=== PATIENT | female | born 1990 | race Caucasian/White ===

== ENCOUNTER → 2017-05-13 20:18 | Observation (INO) ==
--- NOTE | 2017-05-13 19:53 | OB/GYN History & Physical ---
Date of Encounter: 05/13/17 Time of Encounter: 19:50 Assessment and Plan (1) and not yet delivered in second trimester Current visit: Yes Status: Acute (2) 20 weeks gestation of Current visit: Yes Status: Acute (3) Polysubstance dependence including opioid type drug, episodic abuse Current visit: Yes Status: Acute (4) Hepatitis B affecting in second trimester, antepartum Current visit: Yes Status: Acute (5) Hepatitis C Current visit: Yes Status: Acute Qualifiers: Viral hepatitis chronicity: chronic Hepatic coma status: without hepatic coma Qualified Code(s): B18.2 - Chronic viral hepatitis C History of Present Illness HPI: Ms. Espinoza is a 26 year old female 3 para 1102 at approximately 20 weeks. Presented by EMS secondary to cramping. At the patient got here she actually presented because she was having an anxiety attack and wanted help for her drug addiction. Patient admits to using crack cocaine cocaine and heroin on a daily basis along with large amounts of gabapentin. Patient states that she cannot go without this. She has had no care at this point has a history of a section with her first baby and a with her second. She states her second child was delivered prematurely stated the baby only weighed 1-2 pounds at . She states she had premature rupture membranes and was transferred to [facility] from our facility. Patient does state that she has hepatitis C hepatitis B and has had complete liver failure in the past does not know if she has HIV. 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 We did do a transabdominal ultrasound which confirmed a viable intrauterine with measurements at approximately 20 weeks. Patient did finally come down this was having an anxiety attack over the holidays and is requesting help. We advised her to call the office to try and get into [facility] group she originally did not want to do that when explained if she does not get in a group she is looking at losing all of her children she is willing to get in. Did inform her we will notify the office to call her and try and get her in as soon as possible. After she calmed down she was no longer complaining of abdominal pain. Past Med Surg Social Fam HX - Past Medical History Medical history: hepatitis, seizures, other (Hepatitis B, hepatitis C, history of liver failure in the past, scoliosis) Psychiatric history: anxiety, depression - Past Surgical History Surgical History: - Social History Smoking Status: Current every day smoker Smokeless Tobacco Status: No Alcohol use: none Drug use: cocaine, IV Drug Use, prescription drug abuse, other (Crack cocaine) Occupational status: unemployed Current living situation: Home - Independent Activity Level: Independent ambulation Recent Out of Country Travel Within the Last 8 Weeks: No Exposure or Possible Exposure to Illness During Travel: No Obstetrical History - Pregnancies : 3 Para: 2 Term: 1 : 1 Ab's: 1 Livin Medications and Allergies No Known Home Drugs 12/12/15 [History] 3 Allergy/AdvReac Type Severity Reaction Status Date / Time No Known Allergies Allergy Verified 01/07/16 22:06 Review of System OB All systems PM: reviewed and no additional remarkable complaints except as stated Exam - Constitutional Constitutional: mild distress, disheveled - HEENT HEENT: PERRL - Neck Neck exam: full ROM - Lungs Respiratory exam: CTAB - Cardiovascular Cardiovascular exam: RRR - Abdomen Abdomen: Present: gravid - Cervix Dilation: 0 Effacement: 10 - Comments Comments: Bedside ultrasound confirmed a viable intrauterine good movement noted anterior placenta heart tones in the 160s. Biometrics had the at approximately 20 weeks. Results All other labs normal.
[2017-05-13 19:54] VITALS: BP 125/71
[2017-05-13 20:51] LABS: Amphetamine Screen,Urine Positive ng/mL (Cutoff=1000); Barbiturate Screen,Urine Negative ng/mL (Cutoff=200); Benzodiazepines Screen,Urine Positive ng/mL (Cutoff=200); Cannabinoid Screen,Urine Negative ng/mL (Cutoff = 50); Cocaine Screen,Urine Positive ng/mL (Cutoff= 300); Opiate Screen,Urine Positive ng/mL (Cutoff=300); Phencyclidine Screen,Urine Negative ng/mL (Cutoff=25)
== END | disposition home or self-care (01) ==
LOC: 1NENULAB
PROVIDERS: ADMIT Obstetrics & Gynecology; ATTEND Obstetrics & Gynecology

== ENCOUNTER 2017-08-30 06:11 | Inpatient (IN) ==
[2017-08-30] MEDS ORDERED: Oxytocin 20 units/ LR 1000 mL 20 UNIT/1,000 ML BAG IVC ONE (06:17)
[2017-08-30] MEDS ORDERED: *HR* Oxytocin 10 UNIT/ML VIAL IM ONE ×2 (06:19→07:51)
--- NOTE | 2017-08-30 06:52 | OB/GYN Procedure Note ---
Delivery - Delivery Date: 08/30/17 Provider: Shira Parra Intrapartum events: meconium, precipitous labor- <3hr Delivery induction: none Delivery monitor: external FHT, external uterine Anesthesia: none Estimated Blood Loss: 100 - (s) Infant A Infant Delivery Date: 08/30/17 Infant Delivery Time: 06:26 Presentation: vertex Position: KATRIN Route of delivery: Gender: Female Viability: Viable Pounds: 6 Ounces: 11 Weight Gram: 3045 kg at 1 minute: 8 at 5 mins: 9 Shoulder Dystocia: not encountered Placenta: spontaneous Cord: 3 umbilical vessels - Repair Episiotomy: none Laceration Description: None - Complications Delivery complications: meconium Delivery comments: 27 year-old presenting at 35w4d in active labor at complete dilation. She spontaneously ruptured for thick MSF shortly after arrival and then pushed effectively to over intact perineum. Viable female infant weighing 6lbs 11 oz with apgars 8at one minute and 9 at five minutes. After pulsations ceased the cord was clamped and cut and the placenta delivered spontaneous and intact. No lacerations noted on exam. Mother and baby stable in DR following procedure. EBL 100ml. Placenta appears to be intact with accessory lobe. - Disposition Mom disposition: stable in LDR [place] disposition: stable in LDR
--- NOTE | 2017-08-30 07:05 | OB/GYN History & Physical ---
Date of Encounter: 08/30/17 Time of Encounter: 06:59 Assessment and Plan (1) 35 weeks gestation of Current visit: Yes Status: Acute (2) Active labor Current visit: Yes Status: Acute Pt proceeded with precipitous vaginal delivery after . (3) Hepatitis B affecting in second trimester, antepartum Current visit: No Status: Acute No lab results availabe to confirm. Hep B sag ordered. (4) Hepatitis C Current visit: No Status: Acute Qualifiers: Viral hepatitis chronicity: chronic Hepatic coma status: without hepatic coma Qualified Code(s): B18.2 - Chronic viral hepatitis C (5) Polysubstance dependence including opioid type drug, episodic abuse Current visit: No Status: Acute SW consult. (6) Alcohol abuse Current visit: No Status: Chronic (7) Tobacco abuse Current visit: No Status: Chronic (8) Previous delivery affecting Current visit: Yes Status: Acute History of Present Illness Chief complaint: labor HPI: Ms. Espinoza is a 27 year old female presenting at 3w4d by EMS secondary to leaking fluid and contractions. She was found to be completely dilated and proceeded to have a precipitous vaginal delivery. Patient admits to using crack cocaine cocaine and heroin on a daily basis along with methamphetamine and large amounts of gabapentin. Last use was cocaine yesterday and heroin last evening before bed. Patient states that she cannot go without this. SHe is also homeless and has her belongings with her in a trash bag. She has had no care at this point other than one visit in triage here and has a history of a section with her first baby and a with her second. She states her second child was delivered prematurely stated the baby only weighed 1-2 pounds at . She states she had premature rupture membranes and was transferred to [facility] from our facility. Patient does state that she has hepatitis C, hepatitis B, and has had complete liver failure in the past does not know if she has HIV. 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 We did do a transabdominal ultrasound at 20 weeks which confirmed a viable intrauterine and dated her . She was scheduled for follow-up in our office to establish care in the baby centered recovery program but she missed her appointment. Past Med Surg Social Fam HX - Past Medical History Medical history: hepatitis, seizures, other Psychiatric history: anxiety, depression - Past Surgical History Surgical History: - Social History Smoking Status: Current every day smoker Smokeless Tobacco Status: No Alcohol use: none Drug use: cocaine, IV Drug Use, prescription drug abuse, other - Family History Mother History Unknown: Yes Hx Family Cardiac Disorders: No Hx Family Respiratory Disorders: No Hx Family Cancer: No Hx Family GI Disorders: No Hx Family Endocrine Disorder: No Hx Family Neuromuscular Disorders: No Hx Family Neurologic Disorders: No Hx Family HEENT Disorders: No Hx Family Autoimmune Disorders: No Obstetrical History - Pregnancies : 3 Para: 2 Term: 1 : 1 Ab's: 0 Livin Medications and Allergies 3 Allergy/AdvReac Type Severity Reaction Status Date / Time No Known Allergies Allergy Verified 01/07/16 22:06 Review of System OB All systems PM: reviewed and no additional remarkable complaints except as stated Exam - Vital Signs Vital signs: Initial Vital Signs Pulse Resp BP 72 16 115/66 08/30/17 06:50 08/30/17 06:50 08/30/17 06:50 - Constitutional Constitutional: well developed, severe distress, thin (track jordan all over including on abdomen) - Lungs Respiratory exam: CTAB - Cardiovascular Cardiovascular exam: RRR - Abdomen Abdomen: Present: gravid - Extremities Extremities exam: pedal edema (1+ bilaterally) - Cervix Dilation: 10 (upon arrival) - Anus/Rectum Anus/Rectum: Present: normal perianal skin Results All other labs normal.
[2017-08-30] MEDS ORDERED: Etonogestrel 68 MG IMPLANT IL ONE ×2 (07:51→16:08)
[2017-08-30] MEDS ORDERED: Lidocaine -MPF 1% 2 ML VIAL INFILT ONE (07:51)
[2017-08-30] MEDS ORDERED: Acetaminophen 325 MG TABLET PO PRN (07:51)
[2017-08-30] MEDS ORDERED: Measles/Mumps/Rubella Vacc 0.5 ML VIAL SQ PRN (07:51)
[2017-08-30 08:45] LABS: Basophils % 0.2 %; Eosinophils % 0.3 %; Hemoglobin 10.4 g/dL (11.5-15.4); Immature Granulocytes % 0.5 % (0-4); Lymphocytes # 2.1 K/mcL (0.6-4.6); Lymphocytes % 16.3 %; Mean Corpuscular HGB Conc 31.5 g/dL (31.6-35.5); Mean Corpuscular Hemoglobin 24.4 pg (28.0-33.3); Mean Corpuscular Volume 77.5 fL (83.0-100.0); Mean Platelet Volume 11.3 fL (9.4-12.4); Monocytes # 0.6 K/mcL (0.0-1.3); Monocytes % 4.8 %; Platelet Count 211 K/mcL (140-400); Red Blood Count 4.26 M/mcL (3.82-4.97); Red Cell Distribution Width 13.2 % (11.5-14.5); Segmented Neutrophils % 77.9 %
[2017-08-30] MEDS: Prenatal Vit/FA 1 EACH TABLET PO SCH (11:36)
[2017-08-30] MEDS: Ibuprofen 600 MG TABLET PO SCH ×3 (11:36→23:40)
[2017-08-30] MEDS ORDERED: Lidocaine -MPF 1% 5 ML AMPUL INFILT ONE (16:08)
--- NOTE | 2017-08-30 17:12 | OB/GYN Procedure Note ---
<Keli Tyson - Last Filed: 08/30/17 17:18> OB-BATCH AND FURNACE MANAGER: Procedure - Diagnosis Date of procedure: 08/30/17 Pre-op diagnosis: Requesting LARC via Nexplanon Post-op diagnosis: other (LARC insertion) - Procedure Procedure: Nexplanon insertion Surgeon: Keli Tyson Was there an assistant at surgery present: Yes Mobile Practice Lead: Naeem Demarco Anesthesia Type: Local (Lidocaine 1%) Estimated blood loss (cc): 1 Fluids: other (none) Procedure Complications: None Specimens collected: None Disposition: no change Narrative: Informed consent was obtained and time out performed. Patient was placed in the supine position with arm in the appropriate position. Betadine was used to prep the arm in a sterile fashion. 1% lidocaine with epinephrine was used to anesthetize. The implant was inserted in the subcutaneous tissue to the appropriate length then the Nexplanon was released. Both myself and patient can palpate the susie without difficulty. Steri-Strips and a pressure dressing was applied. Patient tolerated the procedure well. She was instructed on wound care to follow up. Dr. Demarco was present for the entire procedure. <Naeem Demarco - Last Filed: 09/03/17 09:59> OB-BATCH AND FURNACE MANAGER: Procedure - Procedure Narrative: As per [facility] policy and SHEET [employer]AL [employer]AYOUT WORK[employer] policy, I proctored this procedure. I agree with its contents.
[2017-08-31 08:00] VITALS: BP 128/80
[2017-08-31] MEDS: Prenatal Vit/FA 1 EACH TABLET PO SCH (10:49)
[2017-08-31] MEDS ORDERED: Mag Hydrox/Al Hydrox/Simeth 30 ML UDC PO PRN (10:50)
[2017-08-31 11:11] LABS: Basophils % 0.2 %; Eosinophils # 0.1 K/mcL (0.0-0.6); Eosinophils % 0.6 %; Hemoglobin 10.1 g/dL (11.5-15.4); Immature Granulocytes % 1.3 % (0-4); Lymphocytes # 2.3 K/mcL (0.6-4.6); Lymphocytes % 19.7 %; Mean Corpuscular HGB Conc 31.6 g/dL (31.6-35.5); Mean Corpuscular Hemoglobin 23.9 pg (28.0-33.3); Mean Corpuscular Volume 75.8 fL (83.0-100.0); Mean Platelet Volume 11.3 fL (9.4-12.4); Monocytes # 0.5 K/mcL (0.0-1.3); Monocytes % 4.4 %; Neutrophils # 8.8 K/mcL (1.6-8.9); Platelet Count 235 K/mcL (140-400); Red Blood Count 4.22 M/mcL (3.82-4.97); Red Cell Distribution Width 13.2 % (11.5-14.5); Segmented Neutrophils % 73.8 %
[2017-08-31] MEDS: Ibuprofen 600 MG TABLET PO SCH (11:42)
--- NOTE | 2017-08-31 12:07 | Discharge Summary ---
Date of Encounter: 08/31/17 Time of Encounter: 12:03 - Discharge Diagnosis (1) Vaginal delivery Priority: Primary Status: Acute Comments: Stable in PP, meeting all milestones, pain well managed on po pain medication, Nexplanon placed yesterday. Desires discharge (2) Hepatitis C Priority: Secondary Status: Acute Qualifiers: Viral hepatitis chronicity: chronic Hepatic coma status: without hepatic coma Qualified Code(s): B18.2 - Chronic viral hepatitis C (3) Polysubstance dependence including opioid type drug, episodic abuse Priority: Secondary Status: Acute - Discharge Medications Prescriptions: Ibuprofen [Motrin] 600 mg PO Q6HR #60 tablet Docusate [Colace] 100 mg PO BID #60 capsule Ferrous Sulfate 325 mg PO DAILY #60 tablet Home Medications: Acetaminophen [Tylenol] 650 mg PO Q6HR PRN tablet 08/31/17 [Rx] Docusate [Colace] 100 mg PO BID #60 capsule 08/31/17 [Rx] Ferrous Sulfate 325 mg PO DAILY #60 tablet 08/31/17 [Rx] Ibuprofen [Motrin] 600 mg PO Q6HR #60 tablet 08/31/17 [Rx] Vit/FA 1 each PO DAILY tablet 08/31/17 [Rx] Allergies/Adverse Reactions: 3 Allergy/AdvReac Type Severity Reaction Status Date / Time No Known Allergies Allergy Verified 01/07/16 22:06 Data Procedures and tests throughout hospitalization: Laboratory Tests 08/30/17 08/30/17 08/30/17 08:28 08:28 08:28 WBC RBC Hgb Hct MCV MCH MCHC RDW Plt Count MPV Immature Gran % Seg Neutrophils % Lymphocytes % Monocytes % Eosinophils % Basophils % Neutrophils # Lymphocytes # Monocytes # Eosinophils # Basophils # Chlam trachomat DNA PCR HIV Ag/Ab Combo Qual Nonreactive N.gonorrhoeae DNA (PCR) VZV IgG Antibody Positive Blood Type A POSITIVE 08/30/17 08/30/17 08/31/17 08:28 13:25 10:33 WBC 12.9 H 11.9 H RBC 4.26 4.22 Hgb 10.4 L 10.1 L Hct 33.0 L 32.0 L MCV 77.5 L 75.8 L MCH 24.4 L 23.9 L MCHC 31.5 L 31.6 RDW 13.2 13.2 Plt Count 211 235 MPV 11.3 11.3 Immature Gran % 0.5 1.3 Seg Neutrophils % 77.9 73.8 Lymphocytes % 16.3 19.7 Monocytes % 4.8 4.4 Eosinophils % 0.3 0.6 Basophils % 0.2 0.2 Neutrophils # 10.0 H 8.8 Lymphocytes # 2.1 2.3 Monocytes # 0.6 0.5 Eosinophils # 0.0 0.1 Basophils # 0.0 0.0 Chlam trachomat DNA PCR NOT DETECTED HIV Ag/Ab Combo Qual N.gonorrhoeae DNA (PCR) NOT DETECTED VZV IgG Antibody Blood Type Labs on day of discharge: Labs from last 24 hours 08/31/17 08/30/17 08/30/17 10:33 13:25 08:28 WBC 11.9 H RBC 4.22 Hgb 10.1 L Hct 32.0 L MCV 75.8 L MCH 23.9 L MCHC 31.6 RDW 13.2 Plt Count 235 MPV 11.3 Immature Gran % 1.3 Seg Neutrophils % 73.8 Lymphocytes % 19.7 Monocytes % 4.4 Eosinophils % 0.6 Basophils % 0.2 Neutrophils # 8.8 Lymphocytes # 2.3 Monocytes # 0.5 Eosinophils # 0.1 Basophils # 0.0 Chlam trachomat DNA PCR NOT DETECTED HIV Ag/Ab Combo Qual N.gonorrhoeae DNA (PCR) NOT DETECTED VZV IgG Antibody Positive 08/30/17 08:28 WBC RBC Hgb Hct MCV MCH MCHC RDW Plt Count MPV Immature Gran % Seg Neutrophils % Lymphocytes % Monocytes % Eosinophils % Basophils % Neutrophils # Lymphocytes # Monocytes # Eosinophils # Basophils # Chlam trachomat DNA PCR HIV Ag/Ab Combo Qual Nonreactive N.gonorrhoeae DNA (PCR) VZV IgG Antibody Date of admission: 08/30/17 06:11 Primary care physician: PCP NONE Consults: 08/30/17 07:51 Consult to Scrap Metal Burner [CONS] Routine Comment: Vaginal delivery, consult needed Consult to Etl Software Engineer [CONS] Routine Reason for SW Consult: No care, illicit drug use Discharging clinician: Luz Maria Sellers Anticipated date of discharge: 08/31/17 - Patient Status Disposition: Home, Self-Care Condition: Good Functional capacity at discharge: independent ambulation Overall status at discharge: patient is back to baseline - Discharge Instructions Follow Up With: NONE,PCP [Primary Care Provider] - - Diet and Activity Activity: resume usual activities as tolerated Diet: regular diet Hospital Course Reason for admission: active labor, IUP - Delivery: Episiotomy: none Laceration: none Other procedures: none complications: none Discharge diagnosis: delivery [place] baby: female Hospital course: Delivery - Delivery Date: 08/30/17 Provider: Shira Parra Intrapartum events: meconium, precipitous labor- <3hr Delivery induction: none Delivery monitor: external FHT, external uterine Anesthesia: none Estimated Blood Loss: 100 - (s) Infant A Infant Delivery Date: 08/30/17 Infant Delivery Time: 06:26 Presentation: vertex Position: KATRIN Route of delivery: Gender: Female Viability: Viable Pounds: 6 Ounces: 11 Weight Gram: 3045 kg at 1 minute: 8 at 5 mins: 9 Shoulder Dystocia: not encountered Placenta: spontaneous Cord: 3 umbilical vessels - Repair Episiotomy: none Laceration Description: None - Complications Delivery complications: meconium Delivery comments: 27 year-old presenting at 35w4d in active labor at complete dilation. She spontaneously ruptured for thick MSF shortly after arrival and then pushed effectively to over intact perineum. Viable female infant weighing 6lbs 11 oz with apgars 8at one minute and 9 at five minutes. After pulsations ceased the cord was clamped and cut and the placenta delivered spontaneous and intact. No lacerations noted on exam. Mother and baby stable in DR following procedure. EBL 100ml. Placenta appears to be intact with accessory lobe. - Disposition Mom disposition: stable in PP and appropriate for discharge. Time Attestation: Total time spent providing and/or coordinating discharge services: Time Spent: Less than 30 minutes Exam - Constitutional Vitals: Temp Pulse Resp BP Pulse Ox 99.4 F 83 16 128/80 96 08/31/17 07:59 08/31/17 07:59 08/31/17 07:59 08/31/17 07:59 08/31/17 04:15 General appearance IM: A&O X 3 - Respiratory Respiratory exam: Present: CTAB - Cardiovascular Cardiovascular exam IM: Present: RRR - GI/Abdominal GI/Abdominal exam IM: soft - Uterine Tone: Firm Uterus Position: At Umbilicus - Extremities Exam Extremities exam IM: Present: normal capillary refill, normal inspection - Neurological Exam Neurological exam: normal gait, oriented X3 - Psychiatric Additional comments: Mood appropriate for situation.
[2017-09-02 13:33] LABS: HCV Quant Interpretation NOT DETECTED (Not Detected)
== END 2017-08-31 12:30 | disposition home or self-care (01) | DRG 560 ==
LOC: 1NENULAB → OBSVTOIN 06:11 → 1NENUOBS 09:16
PROVIDERS: ADMIT Registered Nurse; ATTEND Registered Nurse

== ENCOUNTER 2017-10-13 13:35 | Observation (INO) ==
[2017-10-13] MEDS ORDERED: 0.9 % Sodium Chloride 1,000 ML IVC ONE ×3 (15:10→19:52)
[2017-10-13] MEDS ORDERED: Ondansetron 4 MG/2 ML VIAL IVP ONE ×2 (15:11→18:11)
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
[2017-10-13] MEDS ORDERED: Ondansetron ODT 4 MG TAB.RAPDIS SL ONE ×2 (16:25→17:55)
[2017-10-13 16:52] LABS: Basophils % 0.1 %; Eosinophils % 0.1 %; Hemoglobin 13.7 g/dL (11.5-15.4); Immature Granulocytes % 0.3 % (0-4); Lymphocytes # 1.7 K/mcL (0.6-4.6); Mean Corpuscular HGB Conc 32.6 g/dL (31.6-35.5); Mean Corpuscular Hemoglobin 24.1 pg (28.0-33.3); Mean Corpuscular Volume 73.9 fL (83.0-100.0); Mean Platelet Volume 10.8 fL (9.4-12.4); Monocytes # 0.6 K/mcL (0.0-1.3); Monocytes % 6.1 %; Neutrophils # 7.2 K/mcL (1.6-8.9); Platelet Count 250 K/mcL (140-400); Red Blood Count 5.68 M/mcL (3.82-4.97); Red Cell Distribution Width 16.6 % (11.5-14.5); Segmented Neutrophils % 75.4 %
[2017-10-13 17:10] LABS: Acetaminophen < 10 mcg/mL (10-20)
[2017-10-13 17:12] LABS: Albumin 3.8 g/dL (3.5-5.7); Bilirubin,Direct 0.1 mg/dL (0.0-0.2); Bilirubin,Indirect 0.5 mg/dL (0.0-1.2); Bilirubin,Total 0.6 mg/dL (0.3-1.0); Globulin 3.9 g/dL (2.4-3.5); Total Protein 7.7 g/dL (6.4-8.9)
[2017-10-13 17:25] LABS: Thyroid Stimulating Hormone 0.171 mcIU/mL (0.340-5.600)
[2017-10-13 17:48] LABS: BUN/Creatinine Ratio 24 (6-26); Blood Urea Nitrogen 16 mg/dL (6-20); Calcium 9.5 mg/dL (8.6-10.3); Carbon Dioxide 24 mEq/L (23-29); Chloride 104 mEq/L (98-107); Ethanol < 10 mg/dL (Less than 10); Glucose 94 mg/dL (70-105); Osmolality,Calculated 285 (280-300); Potassium 3.7 mEq/L (3.5-5.1); Salicylate < 2.5 mg/dL (15.0-30.0); Sodium 137 mEq/L (136-145); eGFR For African Americans > 60 (> 60); eGFR For Non-African Americans > 60 (> 60)
[2017-10-13 18:02] VITALS: BP 107/67
[2017-10-13] MEDS ORDERED: *HR* Promethazine 25 MG/ML VIAL IVP ONE (19:02)
[2017-10-13] MEDS ORDERED: 0.9 % Sodium Chloride 1,000 ML ONE (19:37)
[2017-10-13] MEDS ORDERED: Ondansetron 4 MG/2 ML VIAL IVP PRN (19:58)
[2017-10-13] MEDS ORDERED: 0.9 % Sodium Chloride 1,000 ML IVC SCH (20:00)
[2017-10-13] MEDS ORDERED: Acetaminophen 325 MG TABLET PO PRN (20:00)
[2017-10-13] MEDS ORDERED: Naloxone 0.4 MG/ML INJ IVP PRN (20:00)
--- NOTE | 2017-10-13 20:04 | Internal Med History&Physical ---
Date of Encounter: 10/14/17 Time of Encounter: 20:02 Internal Medicine - H&P: HPI Chief complaint: nausea/vomiting Admitted From: Emergency Dept Plans for Post Hospital Care: Home History of present illness: Ms. Espinoza is a 27 year old female with history of multi-substance abuse recently sent to senior living 2 days ago for unknown reason at the moment who started having nausea and vomiting and abdominal pain today. She went to the nurse at the [facility] and apparently had a possible seizure although the details of this are not clear. She used heroin and was abusing Xanax on a regular basis prior to her incarceration and last used 2 days ago prior to her being sent to the senior living. The patient reports abdominal pain and feeling very weak. She is very lethargic upon my interview and is not able to get too much information. She had her back turned to me throughout my conversation and would not turn. In the ED a CT head was unremarkable and laboratory workup showed normal kidney function and normal LFTs. TSH was 0.171. She was given a couple of liter boluses as well as antiemetics in the ED. The patient denies any fever, chills , headache, blurry vision, chest pain, shortness breath, urinary symptoms, or neurological symptoms. Past Med Surg Social Fam HX - Past Medical History Medical history: hepatitis, seizures, other Psychiatric history: anxiety, depression - Past Surgical History Surgical History: - Social History Smoking Status: Unknown if ever smoked Smokeless Tobacco Status: No Alcohol use: none, unknown Drug use: unknown, cocaine, IV Drug Use, prescription drug abuse, other - Family History Mother Hx Family Cardiac Disorders: No Hx Family Respiratory Disorders: No Hx Family Cancer: No Hx Family GI Disorders: No Hx Family Endocrine Disorder: No Hx Family Neuromuscular Disorders: No Hx Family Neurologic Disorders: No Hx Family HEENT Disorders: No Hx Family Autoimmune Disorders: No Internal Medicine - H&P: Meds Acetaminophen [Tylenol] 650 mg PO Q6HR PRN tablet 08/31/17 [Rx] Docusate [Colace] 100 mg PO BID #60 capsule 08/31/17 [Rx] Ferrous Sulfate 325 mg PO DAILY #60 tablet 08/31/17 [Rx] Ibuprofen [Motrin] 600 mg PO Q6HR #60 tablet 08/31/17 [Rx] Vit/FA 1 each PO DAILY tablet 08/31/17 [Rx] 3 Allergy/AdvReac Type Severity Reaction Status Date / Time No Known Allergies Allergy Verified 01/07/16 22:06 Review of systems: All systems reviewed are negative except for as mentioned above - Constitutional Vitals: Temp Pulse Resp BP Pulse Ox 98.0 F 55 16 107/67 96 10/13/17 13:44 10/13/17 18:02 10/13/17 18:02 10/13/17 18:02 10/13/17 18:02 Exam: GEN: NAD, lethargic HEENT: AT, NC, No cyanosis, oral mucosa is moist, No JVD Lymphatics: No lymphadenoapthy Eyes: Extrocular muscles intact, anicteric CVS:RRR. S1, S2, No m/r/g RESP: CTAB ABD: Soft, NT, ND, +BS EXT: No edema, No rashes, 2+ DP NEURO: Nonfocal, CN II-XII intact, No focal motor or sensory deficits Psych: Cooperative, Not anxious or depressed Internal Med - H&P Results - Labs CBC & Chem 7: 10/13/17 16:41 10/13/17 16:41 Labs: Short CBC 10/13/17 Range/Units 16:41 WBC 9.5 (4.3-11.1) K/mcL Hgb 13.7 (11.5-15.4) g/dL Hct 42.0 (35.3-44.9) % Plt Count 250 (140-400) K/mcL Neutrophils # 7.2 (1.6-8.9) K/mcL BMP 10/13/17 16:41 Sodium 137 Potassium 3.7 Chloride 104 Carbon Dioxide 24 BUN 16 Creatinine 0.66 Glucose 94 Calcium 9.5 Liver Function 10/13/17 Range/Units 16:41 Total Bilirubin 0.6 (0.3-1.0) mg/dL Direct Bilirubin 0.1 (0.0-0.2) mg/dL AST 20 (13-39) Units/L ALT 24 (7-52) Units/L Alkaline Phosphatase 90 (34-104) Units/L Albumin 3.8 (3.5-5.7) g/dL - Impressions ITS Impressions Head CT 10/13/17 15:27 IMPRESSION: No acute intracranial abnormality. D/ / Jose Adorno MD / Jose Adorno MD Interpreting Provider: Jose Adorno MD - Assessment and plan (1) Withdrawal seizures Status: Acute Assessment and plan: Unclear if the patient really had a seizure. She possibly have had a withdrawal seizure from being on Xanax a couple days ago. We will monitor for now. She has no history of seizure activity. We will order an EEG. CT head was unremarkable. No need to start antiepileptics. We will monitor and dealing with seizures if they recur while hospitalized. Qualifiers: Complication of substance-induced condition: uncomplicated Qualified Code(s ): F19.230 - Other psychoactive substance dependence with withdrawal, uncomplicated (2) Intractable nausea and vomiting Status: Acute Assessment and plan: Likely symptoms of withdrawal. Given her abdominal tenderness. CAT scan of the abdomen and pelvis. Otherwise we will treat symptomatically with IV fluids and antiemetics. Qualifiers: Vomiting type: unspecified Qualified Code(s): R11.2 - Nausea with vomiting , unspecified (3) Dehydration Status: Acute Assessment and plan: Patient is clinically dehydrated. We will put on some IV fluids with normal saline running at 125. She is already received a couple of boluses. (4) Abnormal TSH Status: Acute Assessment and plan: TSH is low. Likely subclinical. While check thyroid panel. (5) Hepatitis C Status: Acute Assessment and plan: Chronic Qualifiers: Viral hepatitis chronicity: chronic Hepatic coma status: without hepatic coma Qualified Code(s): B18.2 - Chronic viral hepatitis C (6) DVT prophylaxis Status: Acute Assessment and plan: Heparin subcutaneous - Time Spent With Patient Total time spent is greater than 50% in coordination of care (as documented) at patient's floor/unit and/or counseling patient:
[2017-10-13] MEDS ORDERED: Isovue-370 500 ML INFUS..BTL IV ONE (20:21)
[2017-10-13 21:33] LABS: Triiodothyronine (T3) Free 2.59 pg/mL (2.50-3.90)
[2017-10-13 21:38] LABS: Triiodothyronine (T3) Total 0.83 ng/mL (0.87-1.78)
[2017-10-13] MEDS ORDERED: *HR* Heparin 5,000 UNIT/ML VIAL SQ SCH (22:00)
--- NOTE | 2017-10-13 22:34 | Event Note ---
Date of Encounter: 10/14/17 Time of Encounter: 22:33 The patient is leaving AMA despite our efforts to convince her otherwise. She is A/Ox3 and is has medical decision capacity. She was released by the officer from [facility] from what I understand and is free to be released. Per the patient's nurse, "law researcher who accompanied patient to floor came to nurse's station and stated that patient was on "furlough" and out of his custody. States patient is free from his custody and if she "leaves" hospital does not need to be notified"
--- NOTE | 2017-10-14 01:27 | Discharge Summary ---
Orders not resulted at time of discharge: Pending orders 10/13/17 22:00 CT abd pelvis w iv and oral [CT] Stat Date of Encounter: 10/14/17 Time of Encounter: 22:00 - Discharge Diagnosis (1) Withdrawal seizures Priority: Primary Status: Acute Qualifiers: Complication of substance-induced condition: uncomplicated Qualified Code(s ): F19.230 - Other psychoactive substance dependence with withdrawal, uncomplicated (2) Intractable nausea and vomiting Priority: Primary Status: Acute Qualifiers: Vomiting type: unspecified Qualified Code(s): R11.2 - Nausea with vomiting , unspecified (3) Dehydration Priority: Primary Status: Acute (4) Abnormal TSH Priority: Primary Status: Acute (5) Hepatitis C Priority: Secondary Status: Acute Qualifiers: Viral hepatitis chronicity: chronic Hepatic coma status: without hepatic coma Qualified Code(s): B18.2 - Chronic viral hepatitis C Hospital course: Ms. Espinoza is a 27 year old female with history of multi-substance abuse recently sent to group home 2 days ago for unknown reason at the moment who started having nausea and vomiting and abdominal pain today. She went to the nurse at the [facility] and apparently had a possible seizure although the details of this are not clear. She used heroin and was abusing Xanax on a regular basis prior to her incarceration and last used 2 days ago prior to her being sent to group home. In the ED a CT head was unremarkable and laboratory workup showed normal kidney function and normal LFTs. TSH was 0.171. She was given a couple of liter boluses as well as antiemetics in the ED. She was admitted for dehydration and heroin/xanax withdrawal symptoms. She was given IV fluids and anti-emetics in the ED and I admitted her and continued the same plan. I ordered a CT abd/pelvis and an EEG for the patient. One hour into her admission , she wanted to leave AMA. She is A/Ox3 and has medical decision capacity. She was released by the officer from [facility] from what I understand and is free to be released. Per the patient's nurse, "lawyer criminal who accompanied patient to floor came to nurse's station and stated that patient was on "furlough" and out of his custody. States patient is free from his custody and if she "leaves" hospital does not need to be notified" The patient left AMA on 10/13 around 10:30 pm. - Time Spent with Patient Total time spent providing and/or coordinating discharge services: Greater than 30 minutes - Discharge Medications Home Medications: Acetaminophen [Tylenol] 650 mg PO Q6HR PRN tablet 08/31/17 [Rx] Docusate [Colace] 100 mg PO BID #60 capsule 08/31/17 [Rx] Ferrous Sulfate 325 mg PO DAILY #60 tablet 08/31/17 [Rx] Ibuprofen [Motrin] 600 mg PO Q6HR #60 tablet 08/31/17 [Rx] Vit/FA 1 each PO DAILY tablet 08/31/17 [Rx] Allergies/Adverse Reactions: 3 Allergy/AdvReac Type Severity Reaction Status Date / Time No Known Allergies Allergy Verified 01/07/16 22:06 Date of admission: 10/13/17 20:05 Primary care physician: PCP NONE - Constitutional Vitals: Temp Pulse Resp BP Pulse Ox 98.0 F 55 16 107/67 96 10/13/17 13:44 10/13/17 18:02 10/13/17 18:02 10/13/17 18:02 10/13/17 18:02 Exam: GEN: NAD, lethargic HEENT: AT, NC, No cyanosis, oral mucosa is moist, No JVD Lymphatics: No lymphadenoapthy Eyes: Extrocular muscles intact, anicteric CVS:RRR. S1, S2, No m/r/g RESP: CTAB ABD: Soft, NT, ND, +BS EXT: No edema, No rashes, 2+ DP NEURO: Nonfocal, CN II-XII intact, No focal motor or sensory deficits Psych: Cooperative, Not anxious or depressed - Patient Status Disposition: Left Against Medical Advice Condition: Fair - Discharge Instructions Follow Up With: NONE,PCP [Primary Care Provider] -
== END 2017-10-13 22:20 | disposition left against medical advice (07) ==
LOC: 3ANU 13:35 → EMEROO 13:35 → 3ANU 20:48
PROVIDERS: ADMIT Internal Medicine; ATTEND Student in an Organized Health Care Education/Training Program

== ENCOUNTER 2018-08-03 08:53 | Observation (INO) ==
[2018-08-03] MEDS ORDERED: *HR* LORazepam 2 MG/ML VIAL IM ONE ×2 (09:03→10:49)
--- NOTE | 2018-08-03 09:23 | Emergency Department Note ---
Disposition Clinical Impression: Delirium due to medical condition with behavioral disturbance Drug overdose Qualifiers: Encounter type: initial encounter Injury intent: undetermined intent Qualified Code(s): T50.904A - Poisoning by unspecified drugs, medicaments and biological substances, undetermined, initial encounter Disposition: Still a Patient Referrals: NONE,PCP [Primary Care Provider] - Forms: ED Satisfaction Letter General Adult HPI - General Stated complaint: drug use, meth Time Seen by Provider: 08/03/18 09:02 Source: EMS - History of Present Illness HPI Narrative: Patient is non compliant with to questioning and HPI is obtained from EMS. Reports that patient chief complaint was chest pain. Significant other denies any recent drug use, however patient unable to confirm this. EKG in route demonstrated sinus rhythm. Pt Subjective Complaint: chest pain Pain Scale: 0 - Related Data Previous Rx's Medication Instructions Recorded Ondansetron ODT [Zofran ODT] 4 mg SL Q8HR #12 tab.rapdis 05/30/18 cephALEXin [Keflex] 500 mg PO BID #10 capsule 05/30/18 Ibuprofen [Motrin] 600 mg PO Q8HR PRN #20 tab 06/15/18 Allergies Allergy/AdvReac Type Severity Reaction Status Date / Time No Known Allergies Allergy Verified 10/25/17 03:48 Limitations: ROS unobtainable due to patients medical condition Past Medical History - Past Medical History Source: nursing notes reviewed Medical history: Reports: non-contributory, hepatitis, seizures, other Surgical history: Reports: Psychiatric history: Reports: anxiety, depression ALUMINUM SIDING INSTALLER history: Reports: no ALUMINUM SIDING INSTALLER history - Social History Smoking Status: Current every day smoker Smokeless Tobacco Status: No Alcohol use: Reports: none Drug use: Reports: methamphetamine, other Physical Exam - General Limitations: other (agitation) General appearance: anxious - Head Head exam: atraumatic, normocephalic - Eye Eye exam: Present: PERRL - ENT ENT exam: mucous membranes dry - Neck Neck exam: Present: trachea midline - Chest Chest inspection: Present: symmetric chest wall rise. Absent: rash - Respiratory Respiratory exam: Present: normal lung sounds bilaterally. Absent: respiratory distress, wheezes, accessory muscle use, prolonged expiratory phase - Cardiovascular Cardiovascular exam: Present: regular rate, normal rhythm. Absent: systolic murmur, diastolic murmur - Abdominal Exam Abdominal exam: Present: soft. Absent: distention, guarding, rigidity - Rectal Exam Rectal exam: Present: deferred - Back Exam Back exam: Present: normal inspection. Absent: rashes - Neurological Exam Neurological exam: Present: other - Psychiatric Psychiatric exam: Present: agitated (unable to assess secodary to agitation) - Skin Skin exam: Present: warm, dry Course Course Narrative: Patient arrived unable to provide HPI. EKG reviewed and is consistent with prior. Physical exam is non revealing. Due to patient agitation and for patient and staff safety 2 mg of IM ativan given with a suboptimal response. 75 mg IM ketamine given in the right anterolateral thigh by myself. Vital Signs Temperature 98.1 F 08/03/18 09:01 Pulse Rate 86 08/03/18 09:01 Respiratory Rate 29 08/03/18 09:01 Blood Pressure 112/101 08/03/18 09:01 O2 Sat by Pulse Oximetry 100 08/03/18 09:01 Temperature 98.1 F 08/03/18 09:01 Pulse Rate 86 08/03/18 09:01 Respiratory Rate 29 08/03/18 09:01 Blood Pressure 112/101 08/03/18 09:01 O2 Sat by Pulse Oximetry 100 08/03/18 09:01 Oxygen Delivery Oxygen Delivery Room Air Medical Decision Making - Lab Data Lab Results 08/03/18 Range/Units 10:49 Ur Drug Screen Interp See Below
--- NOTE | 2018-08-03 09:41 | Emergency Department Note ---
Disposition Clinical Impression: Delirium due to medical condition with behavioral disturbance Drug overdose Qualifiers: Encounter type: initial encounter Injury intent: undetermined intent Qualified Code(s): T50.904A - Poisoning by unspecified drugs, medicaments and biological substances, undetermined, initial encounter Disposition: Still a Patient General Adult HPI - General Chief complaint: ED Overdose Stated complaint: drug use, meth Time Seen by Provider: 08/03/18 09:02 Source: EMS Limitations: other (agitation) Nursing Notes Reviewed: Yes Vital Signs Reviewed: Yes - History of Present Illness HPI Narrative: ED ATTESTATION NOTE: I examined this patient and my medical decision-making was reviewed with the Resident Physician/OUTSOLE MOLDER/PA/Student. I have personally performed a face to face evaluation on this patient & I agree with the documented findings, disposition and treatment plan as described except to the extent set forth below. Patient was seen with TRANSITIONAL medicine resident Dr. AYDEN VILLAGRAN please see copy of his note for details of this encounter Briefly: 19-year-old female brought in for altered mental status secondary to suspected methamphetamine use. They found her and his significant other gas station in [place]. It is unconfirmed what substances she actually took. The EMS was initially called out for complaints of chest pain. Patient appears to be altered unable to follow commands but is maintaining airway and moving all 4 extremities. Patient's core rectal temperature was 98.1. EKG showed sinus rhythm at 94 bpm no acute ischemic changes patient appears to have episodic limb movements and flopping into the bed we initially tried 2 mg IM Ativan which the patient is sleepy but she still having these movements. In order to safely medically managed and evaluate this patient we will do some dissociative dose ketamine intramuscularly at 1 mg/kg obese 62-year-old bounding up to 75 for ease of administration. After medicine was administered we will do a catheter UA in order to confirm or refute the presence of methamphetamine in her system patient will also get screening labs chest x-ray CK. Patient does not clear anteriorly within the next hour or 2 we will admit the patient for medical clearance. Providing 45 minutes critical care service this patient. 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: Reports: no [employer]IV[employer] 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 history - Social History Smoking Status: Current every day smoker Smokeless Tobacco Status: No Alcohol use: Reports: none Drug use: Reports: methamphetamine, other Physical Exam - General Limitations: other (agitation) General appearance: anxious Course Vital Signs Temperature 98.1 F 08/03/18 09:01 Pulse Rate 86 08/03/18 09:01 Respiratory Rate 29 08/03/18 09:01 Blood Pressure 112/101 08/03/18 09:01 O2 Sat by Pulse Oximetry 100 08/03/18 09:01 Temperature 98.1 F 08/03/18 09:01 Pulse Rate 86 08/03/18 09:01 Respiratory Rate 29 08/03/18 09:01 Blood Pressure 112/101 08/03/18 09:01 O2 Sat by Pulse Oximetry 100 08/03/18 09:01 Oxygen Delivery Oxygen Delivery Room Air
[2018-08-03] MEDS ORDERED: *HR* Ketamine 500 MG/5 ML MDV ONE (09:58)
[2018-08-03] MEDS: *HR* Ketamine 500 MG/5 ML MDV IM ONE ×2 (10:01→10:06)
--- NOTE | 2018-08-03 10:47 | Emergency Department Note ---
Disposition Clinical Impression: Delirium due to medical condition with behavioral disturbance Drug overdose Qualifiers: Encounter type: initial encounter Injury intent: undetermined intent Qualified Code(s): T50.904A - Poisoning by unspecified drugs, medicaments and biological substances, undetermined, initial encounter Disposition: Admitted As Inpatient Referrals: NONE,PCP [Primary Care Provider] - Forms: ED Satisfaction Letter Time of Disposition: 15:21 General Adult HPI - General Chief complaint: ED Overdose Stated complaint: drug use, meth Time Seen by Provider: 08/03/18 09:02 Source: EMS Limitations: other (agitation) - History of Present Illness Pain Scale: 0 - Related Data Previous Rx's Medication Instructions Recorded Ondansetron ODT [Zofran ODT] 4 mg SL Q8HR #12 tab.rapdis 05/30/18 cephALEXin [Keflex] 500 mg PO BID #10 capsule 05/30/18 Ibuprofen [Motrin] 600 mg PO Q8HR PRN #20 tab 06/15/18 Allergies Allergy/AdvReac Type Severity Reaction Status Date / Time No Known Allergies Allergy Verified 10/25/17 03:48 Past Medical History - Past Medical History Medical history: Reports: non-contributory, hepatitis, seizures, other Surgical history: Reports: Psychiatric history: Reports: anxiety, depression [employer] history: Reports: no [employer] history - Social History Smoking Status: Current every day smoker Smokeless Tobacco Status: No Alcohol use: Reports: none Drug use: Reports: methamphetamine, other Physical Exam - General Limitations: other (agitation) General appearance: anxious Course Course Narrative: Prior medical note was signed in error. This note is for continued documentation of visit. Please see the previous not for HPI, ROS, exam, and initial course. Patient arrived agitated with altered mental status and unable to provide HPI. EMS reporting chest pain as chief complain with suspected intentional drug abuse. EKG was obtained and within acute changes. Patient required 2 mg IM ativan for safety of patient and staff and later 75 mg of IM ketamine. Patient remains agitated, unable to collect blood for safety to staff and patient. Will administer 5 mg IM haldol and 1 mg IM ativan. Will reassess for response and collect urine and blood for testing when safe to do so with plan for cbc, bmp, UA, urine drug, test, troponin, and CPK. - Reevaluation(s) Reevaluation #1: Urine drug screen is positive for amphetamines, cocaine, and marijuana. Patient seen and evaluated, No acute changes, is less agitated. CK elevated at 1100, likely due to agitation and struggling against care Will provide 1L NS Spoke with Dr. Brown who accepts patient for admission of behavioral disturbance secondary to intentional drug usage. Time: 11:30 Vital Signs Temperature 98.1 F 08/03/18 09:01 Pulse Rate 86 08/03/18 09:01 Respiratory Rate 29 08/03/18 09:01 Blood Pressure 112/101 08/03/18 09:01 O2 Sat by Pulse Oximetry 100 08/03/18 09:01 Temperature 98.1 F 08/03/18 09:01 Pulse Rate 87 08/03/18 12:08 Respiratory Rate 10 08/03/18 12:08 Blood Pressure 101/67 08/03/18 12:08 O2 Sat by Pulse Oximetry 94 08/03/18 12:08 Oxygen Delivery Oxygen Delivery Nasal Cannula Procedures - Procedural Sedation Procedure: Ketamine for subdissociative sedation Ketamine: IM Ketamine Dose: 75 Additional Comments: Patient given IM 2 mg Ketamine by myself in the right anterolateral thigh under direct supervision of Dr. Avalos. The patient site was prepared with alcohol swab, the needle was placed into the right anterolateral thigh, aspiration confirmed correct placement and Ketamine was injected. Medical Decision Making - Medical Records Medical records reviewed: Yes I reviewed the patient's medical records. - Lab Data Lab results reviewed: Yes I reviewed the patient's lab results. Result diagrams: 08/03/18 12:06 08/03/18 12:06 Lab Results 08/03/18 08/03/18 08/03/18 Range/Units 10:37 10:49 12:06 WBC 14.3 H (4.3-11.1) K/mcL RBC 5.41 H (3.82-4.97) M/mcL Hgb 13.8 (11.5-15.4) g/dL Hct 42.3 (35.3-44.9) % MCV 78.2 L (83.0-100.0) fL MCH 25.5 L (28.0-33.3) pg MCHC 32.6 (31.6-35.5) g/dL RDW 14.7 H (11.5-14.5) % Plt Count 264 (140-400) K/mcL MPV 10.1 (9.4-12.4) fL Immature Gran % 0.4 (0-4) % Seg Neutrophils % 78.4 % Lymphocytes % 15.0 % Monocytes % 5.3 % Eosinophils % 0.6 % Basophils % 0.3 % Neutrophils # 11.2 H (1.6-8.9) K/mcL Lymphocytes # 2.1 (0.6-4.6) K/mcL Monocytes # 0.8 (0.0-1.3) K/mcL Eosinophils # 0.1 (0.0-0.6) K/mcL Basophils # 0.0 (0.0-0.2) K/mcL Sodium (136-145) mEq/L Potassium (3.5-5.1) mEq/L Chloride (98-107) mEq/L Carbon Dioxide (23-29) mEq/L BUN (6-20) mg/dL Creatinine (0.60-1.20) mg/dL Est GFR ( Amer) (> 60) Est GFR (Non-Af Amer) (> 60) BUN/Creatinine Ratio (6-26) Glucose (70-105) mg/dL Calculated Osmolality (280-300) Calcium (8.6-10.3) mg/dL Creatine Kinase (30-223) Units/L Troponin I (< 0.04) ng/mL Beta HCG, Quant (Less than 5) mIU/mL Urine Color Red A (Yellow) Urine Clarity Turbid A (Clear) Urine pH 5.0 (5.0-8.0) pH Units Ur Specific [place] > 1.030 H (1.010-1.025) Urine Protein >=300 H (Neg-Trace) mg/dL Urine Glucose (UA) Normal (Normal) mg/dL Urine Ketones Trace H (Negative) mg/dL Urine Blood Large H (Negative) Urine Nitrite Negative (Negative) Urine Bilirubin Moderate H (Negative) Urine Urobilinogen Normal (Normal) mg/dL Ur Leukocyte Esterase Small H (Negative) Urine Microscopic RBC 5-15 H (0-3) per hpf Urine Microscopic WBC 3-5 H (0-3) per hpf Ur Squamous Epith Cells Many H (None-Few) per lpf Amorphous Sediment Moderate H (Few) Urine Bacteria None Seen (None-Few) per hpf Ur Culture Indicated? NO. A (NO) Urine Opiates Screen Negative (Wzmqjx=951) ng/mL Ur Barbiturates Screen Negative (Jqhtuw=264) ng/mL Ur Phencyclidine Scrn Negative (Cutoff=25) ng/mL Ur Amphetamines Screen Positive H (Wujlwq=0244) ng/mL U Benzodiazepines Scrn Negative (Slmzug=474) ng/mL Urine Cocaine Screen Positive H (Cutoff= 300) ng/mL U Marijuana (THC) Screen Positive H (Cutoff = 50) ng/mL Ur Drug Screen Interp See Below 08/03/18 Range/Units 12:06 WBC (4.3-11.1) K/mcL RBC (3.82-4.97) M/mcL Hgb (11.5-15.4) g/dL Hct (35.3-44.9) % MCV (83.0-100.0) fL MCH (28.0-33.3) pg MCHC (31.6-35.5) g/dL RDW (11.5-14.5) % Plt Count (140-400) K/mcL MPV (9.4-12.4) fL Immature Gran % (0-4) % Seg Neutrophils % % Lymphocytes % % Monocytes % % Eosinophils % % Basophils % % Neutrophils # (1.6-8.9) K/mcL Lymphocytes # (0.6-4.6) K/mcL Monocytes # (0.0-1.3) K/mcL Eosinophils # (0.0-0.6) K/mcL Basophils # (0.0-0.2) K/mcL Sodium 136 (136-145) mEq/L Potassium 3.4 L (3.5-5.1) mEq/L Chloride 105 (98-107) mEq/L Carbon Dioxide 22 L (23-29) mEq/L BUN 20 (6-20) mg/dL Creatinine 0.74 (0.60-1.20) mg/dL Est GFR ( Amer) > 60 (> 60) Est GFR (Non-Af Amer) > 60 (> 60) BUN/Creatinine Ratio 27 H (6-26) Glucose 94 (70-105) mg/dL Calculated Osmolality 284 (280-300) Calcium 9.1 (8.6-10.3) mg/dL Creatine Kinase 1134 H (30-223) Units/L Troponin I < 0.03 (< 0.04) ng/mL Beta HCG, Quant < 1 (Less than 5) mIU/mL Urine Color (Yellow) Urine Clarity (Clear) Urine pH (5.0-8.0) pH Units Ur Specific [place] (1.010-1.025) Urine Protein (Neg-Trace) mg/dL Urine Glucose (UA) (Normal) mg/dL Urine Ketones (Negative) mg/dL Urine Blood (Negative) Urine Nitrite (Negative) Urine Bilirubin (Negative) Urine Urobilinogen (Normal) mg/dL Ur Leukocyte Esterase (Negative) Urine Microscopic RBC (0-3) per hpf Urine Microscopic WBC (0-3) per hpf Ur Squamous Epith Cells (None-Few) per lpf Amorphous Sediment (Few) Urine Bacteria (None-Few) per hpf Ur Culture Indicated? (NO) Urine Opiates Screen (Fhsoub=037) ng/mL Ur Barbiturates Screen (Pffxiw=717) ng/mL Ur Phencyclidine Scrn (Cutoff=25) ng/mL Ur Amphetamines Screen (Hsctqt=0263) ng/mL U Benzodiazepines Scrn (Isneim=759) ng/mL Urine Cocaine Screen (Cutoff= 300) ng/mL U Marijuana (THC) Screen (Cutoff = 50) ng/mL Ur Drug Screen Interp - Radiology Data Radiology results reviewed: Yes I reviewed the patient's radiology results.
[2018-08-03] MEDS ORDERED: Haloperidol Lactate 5 MG/ML VIAL IM ONE (10:49)
[2018-08-03 11:07] LABS: Bilirubin,Urine Moderate (Negative); Blood,Urine Large (Negative); Clarity,Urine Turbid (Clear); Color,Urine Red (Yellow); Glucose,Urine (UA) Normal (Normal); Ketones,Urine Trace mg/dL (Negative); Leukocyte Esterase,Urine Small (Negative); Nitrite,Urine Negative (Negative); Protein,Urine >=300 mg/dL (Neg-Trace); Specific Gravity,Urine > 1.030 (1.010-1.025); Urobilinogen,Urine Normal (Normal)
[2018-08-03 11:13] LABS: Bacteria,Urine None Seen per hpf (None-Few); Squamous Epithelial Cell,Urine Many per lpf (None-Few)
[2018-08-03 11:21] LABS: Amphetamine Screen,Urine Positive ng/mL (Cutoff=1000); Barbiturate Screen,Urine Negative ng/mL (Cutoff=200); Benzodiazepines Screen,Urine Negative ng/mL (Cutoff=200); Cannabinoid Screen,Urine Positive ng/mL (Cutoff = 50); Cocaine Screen,Urine Positive ng/mL (Cutoff= 300); Opiate Screen,Urine Negative ng/mL (Cutoff=300); Phencyclidine Screen,Urine Negative ng/mL (Cutoff=25)
[2018-08-03 11:26] LABS: Amorphous Sediment,Urine Moderate (Few)
[2018-08-03 12:18] LABS: Basophils % 0.3 %; Eosinophils # 0.1 K/mcL (0.0-0.6); Eosinophils % 0.6 %; Hematocrit 42.3 % (35.3-44.9); Hemoglobin 13.8 g/dL (11.5-15.4); Immature Granulocytes % 0.4 % (0-4); Lymphocytes # 2.1 K/mcL (0.6-4.6); Mean Corpuscular HGB Conc 32.6 g/dL (31.6-35.5); Mean Corpuscular Hemoglobin 25.5 pg (28.0-33.3); Mean Corpuscular Volume 78.2 fL (83.0-100.0); Mean Platelet Volume 10.1 fL (9.4-12.4); Monocytes # 0.8 K/mcL (0.0-1.3); Monocytes % 5.3 %; Neutrophils # 11.2 K/mcL (1.6-8.9); Platelet Count 264 K/mcL (140-400); Red Blood Count 5.41 M/mcL (3.82-4.97); Red Cell Distribution Width 14.7 % (11.5-14.5); Segmented Neutrophils % 78.4 %
[2018-08-03 12:39] LABS: BUN/Creatinine Ratio 27 (6-26); Blood Urea Nitrogen 20 mg/dL (6-20); Calcium 9.1 mg/dL (8.6-10.3); Carbon Dioxide 22 mEq/L (23-29); Chloride 105 mEq/L (98-107); Creatine Kinase 1134 Units/L (30-223); Glucose 94 mg/dL (70-105); Osmolality,Calculated 284 (280-300); Potassium 3.4 mEq/L (3.5-5.1); Sodium 136 mEq/L (136-145); eGFR For Non-African Americans > 60 (> 60)
[2018-08-03 12:40] LABS: Troponin I < 0.03 ng/mL (< 0.04)
[2018-08-03] MEDS ORDERED: Naloxone 0.4 MG/ML INJ IVP PRN (15:11)
[2018-08-03] MEDS ORDERED: Acetaminophen 325 MG TABLET PO PRN (15:23)
[2018-08-03] MEDS ORDERED: Ondansetron 4 MG/2 ML VIAL IVP PRN (15:23)
[2018-08-03] MEDS ORDERED: *HR* Dextrose 50 % in Water (Syg) 50 ML SYRINGE IVP PRN (15:32)
[2018-08-03] MEDS ORDERED: Dextrose Gel 15 GM/37.5 ML TUBE PO PRN ×2 (15:32)
[2018-08-03] MEDS ORDERED: D5% in Water 1,000 ML IVC PRN (15:32)
[2018-08-03] MEDS ORDERED: *HR* LORazepam 2 MG/ML VIAL IVP PRN (15:34)
--- NOTE | 2018-08-03 17:25 | Internal Med History&Physical ---
Date of Encounter: 08/03/18 Time of Encounter: 17:13 Internal Medicine - H&P: HPI Chief complaint: CP Admitted From: Emergency Dept Plans for Post Hospital Care: Home History of present illness: Ms. Espinoza is a 27 year old female past medical history of polysubstance abuse hepatitis A/C questionable endocarditis information obtained from patient as well as medical records patient is groggy and is not a reliable source. presented to [facility] ED with complaints of chest pain after arriving in the ER patient became very combative agitated requiring sedation for patient safety as well as ER staff member safety. According to records patient was in a car with her friends when she began experiencing sudden onset of chest pain. Tox screen is positive for amphetamines, cocaine and marijuana she was given IV fluids EKG with no acute changes lab work did show a slight elevation in white count as well as hypokalemia and urinalysis indicative UTI. Chest x-ray with no acute process. Patient was admitted for further workup and evaluation. Currently patient is arousable she is able to answer questions and is protecting her airway. Denies any chest pain at this time she is requesting something to eat- she is unable to recall the events prior to presenting does not know if she has fallen or if she has hit her head. We will obtain CT of head discussed with the patient treatment plan and verbalized understanding. Past Med Surg Social Fam HX - Past Medical History Medical history: non-contributory, hepatitis, seizures, other Additional medical history: endocarditis Psychiatric history: anxiety, depression - Past Surgical History Surgical History: - Social History Smoking Status: Current every day smoker Smokeless Tobacco Status: No Alcohol use: none Drug use: methamphetamine, other - Family History Mother Hx Family Cardiac Disorders: No Hx Family Respiratory Disorders: No Hx Family Cancer: No Hx Family GI Disorders: No Hx Family Endocrine Disorder: No Hx Family Neuromuscular Disorders: No Hx Family Neurologic Disorders: No Hx Family HEENT Disorders: No Hx Family Autoimmune Disorders: No Internal Medicine - H&P: Meds No Known Home Drugs 08/03/18 [History] Allergy/AdvReac Type Severity Reaction Status Date / Time No Known Allergies Allergy Verified 10/25/17 03:48 ROS unobtainable: due to mental status All Systems PM: A 10-system review of systems was performed and is negative for pertinent findings except as documented above in the HPI. - Constitutional Vitals: Temp Pulse Resp BP Pulse Ox 97.7 F 90 18 121/83 99 08/03/18 16:48 08/03/18 16:48 08/03/18 16:48 08/03/18 16:48 08/03/18 16:48 Exam: Skin: Free of rash and track jordan noted to arms and feet Eyes: Sclera is white. There is no discharge from eyes. ENMT: Oral/pharyngeal mucosa is normal in appearance. There is no discharge from nose or ears. Respiratory: Normal breath sounds with no crackles and wheezes bilaterally. CV: Heart is regular with no gallop or murmur. GI: Abdomen is flat and soft with no palpable mass or visceromegaly. : There is no tenderness in patient's flanks bilaterally. Neuro exam: He has good strength in upper and lower extremities. He has normal eye movements. Psychiatric: He has normal affect. His thought process is appropriate to the situation. Internal Med - H&P Results - Labs CBC & Chem 7: 08/03/18 12:06 08/03/18 12:06 Labs: Short CBC 08/03/18 Range/Units 12:06 WBC 14.3 H (4.3-11.1) K/mcL Hgb 13.8 (11.5-15.4) g/dL Hct 42.3 (35.3-44.9) % Plt Count 264 (140-400) K/mcL Neutrophils # 11.2 H (1.6-8.9) K/mcL BMP 08/03/18 12:06 Sodium 136 Potassium 3.4 L Chloride 105 Carbon Dioxide 22 L BUN 20 Creatinine 0.74 Glucose 94 Calcium 9.1 Cardiac Enzymes 08/03/18 Range/Units 12:06 Troponin I < 0.03 (< 0.04) ng/mL Urine 08/03/18 Range/Units 10:37 Urine Color Red A (Yellow) Urine Clarity Turbid A (Clear) Urine pH 5.0 (5.0-8.0) pH Units Ur Specific [place] > 1.030 H (1.010-1.025) Urine Protein >=300 H (Neg-Trace) mg/dL Urine Glucose (UA) Normal (Normal) mg/dL - Impressions ITS Impressions Chest X-Ray 08/03/18 09:04 IMPRESSION: No acute process. Scoliosis. D/ / Esetban Vasquez MD / Esteban Vasquez MD Interpreting Provider: Esteban Vasquez MD - Assessment and Plan (1) Delirium due to medical condition with behavioral disturbance Current Visit: Yes Status: Acute Assessment and plan: 1. Patient was agitated/combative and confused on presentation and required sedation from ER staff. Suspect related to drug intoxication, tox screen po sitive for cocaine, THC, and methamphetamines. However concern for possible trauma since patient does not recall events leading up to presentation. also infectious process may be a concern, since she does have a UTI. -place on seizure precations and aspiration precautions-currently patient is arousalable and protecting airway-ativan as needed for seizure activity -ubtain CT of head, without contrast. -montior glucose for hyperglycemia -monitor for withdrawal symptoms -UA indicative of UTI, continue with Rocephin, obtain urine culture -fall precautions (2) Drug overdose Current Visit: Yes Status: Acute Assessment and plan: Patient has past history of iv drug use, presented altered, tox screen was postive for cocaine, THC and methanphedimines -continious cardiac monitoring -monitor for seizure activivty -aspiration precaustions -continious pulse ox -socail service consult Qualifiers: Encounter type: initial encounter Injury intent: undetermined intent Qualified Code(s): T50.904A - Poisoning by unspecified drugs, medicaments and biological substances, undetermined, initial encounter (3) Chest pain Current Visit: Yes Status: Acute Assessment and plan: on initial presentation patient complained of chest pain, states has history endocarditits as well as history of drug abuse including cocaine, noted systolic murmur /. currently yusef any chest pain. intial trponin was negative, will continue to trend -continue cardiac monitoring -cardiac echo -nitro as needed for chest pain -consult cardiology as needed -ASA in am -check lipid panel in am Qualifiers: Chest pain type: unspecified Qualified Code(s): R07.9 - Chest pain, unspecified (4) UTI (urinary tract infection) Current Visit: Yes Status: Acute Assessment and plan: UA positive for UTI, however patient has not complaints at this time, continue with rocphrine and obtain urine culture - Qualifiers: Urinary tract infection type: site unspecified Hematuria presence: with hematuria Qualified Code(s): N39.0 - Urinary tract infection, site not specified; R31.9 - Hematuria, unspecified (5) Hypokalemia Current Visit: Yes Status: Acute Assessment and plan: 1. Potassium 3.4 with replace and monitor (6) Hepatitis C Current Visit: No Status: Acute Assessment and plan: history of hep c, check hepatic panel Qualifiers: Viral hepatitis chronicity: chronic Hepatic coma status: without hepatic coma Qualified Code(s): B18.2 - Chronic viral hepatitis C (7) DVT prophylaxis Current Visit: No Status: Acute Assessment and plan: SCD - Time Spent With Patient Total time spent is greater than 50% in coordination of care (as documented) at patient's floor/unit and/or counseling patient:
[2018-08-03] MEDS ORDERED: Potassium Chloride 20 MEQ, Lidocaine 1% 2 ML in D5% in Water 250 ML IVPB ONE (17:39)
[2018-08-03] MEDS: 0.9 % Sodium Chloride 1,000 ML IVC SCH (18:17)
[2018-08-03] MEDS ORDERED: cefTRIAXone 1,000 MG in Water for inj. (sterile) 20 ML 10 ML IVP SCH (18:37)
[2018-08-04 01:48] LABS: Hematocrit 38.8 % (35.3-44.9); Hemoglobin 12.7 g/dL (11.5-15.4); Mean Corpuscular HGB Conc 32.7 g/dL (31.6-35.5); Mean Corpuscular Hemoglobin 25.9 pg (28.0-33.3); Mean Corpuscular Volume 79.2 fL (83.0-100.0); Mean Platelet Volume 10.6 fL (9.4-12.4); Platelet Count 236 K/mcL (140-400); Red Cell Distribution Width 14.8 % (11.5-14.5)
[2018-08-04 01:55] LABS: BUN/Creatinine Ratio 26 (6-26); Blood Urea Nitrogen 19 mg/dL (6-20); Calcium 8.6 mg/dL (8.6-10.3); Carbon Dioxide 25 mEq/L (23-29); Chloride 106 mEq/L (98-107); Glucose 129 mg/dL (70-105); Osmolality,Calculated 286 (280-300); Potassium 3.8 mEq/L (3.5-5.1); Sodium 136 mEq/L (136-145); eGFR For Non-African Americans > 60 (> 60)
[2018-08-04] MEDS: 0.9 % Sodium Chloride 1,000 ML IVC SCH ×2 (01:57→08:01)
[2018-08-04 06:56] VITALS: BP 111/71
[2018-08-04] MEDS ORDERED: cefTRIAXone 1,000 MG in Water for inj. (sterile) 20 ML 10 ML IVP SCH (09:00)
[2018-08-04] MEDS ORDERED: Aspirin 81 MG TAB.CHEW PO SCH (09:00)
--- NOTE | 2018-08-04 10:43 | Discharge Summary ---
- NOTES TO OUTPATIENT PROVIDER Notes to Outpatient Provider: Patient presented with drug overdose and chest pain was positive for cocaine amphetamines and marijuana. CT of head was negative troponins were negative 3 EKG with no ischemic changes patient did have systolic murmur patient left AGAINST MEDICAL ADVICE before workup completed Orders not resulted at time of discharge: Pending orders 08/03/18 09:04 ECG 12 lead ECG [ECG] Stat 08/03/18 17:35 EV echocardiogram Routine 08/03/18 18:35 Culture,Urine [RM] Routine 08/04/18 06:00 ECG 12 lead ECG [ECG] AM 0600 Date of Encounter: 08/04/18 Time of Encounter: 10:41 - Discharge Diagnosis (1) Delirium due to medical condition with behavioral disturbance Priority: Primary Status: Acute (2) Drug overdose Priority: Secondary Status: Acute Qualifiers: Encounter type: initial encounter Injury intent: undetermined intent Qualified Code(s): T50.904A - Poisoning by unspecified drugs, medicaments and biological substances, undetermined, initial encounter (3) Chest pain Priority: Secondary Status: Acute Qualifiers: Chest pain type: unspecified Qualified Code(s): R07.9 - Chest pain, unspecified (4) UTI (urinary tract infection) Priority: Secondary Status: Acute Qualifiers: Urinary tract infection type: site unspecified Hematuria presence: with hematuria Qualified Code(s): N39.0 - Urinary tract infection, site not specified; R31.9 - Hematuria, unspecified (5) Hypokalemia Priority: Secondary Status: Acute (6) Hepatitis C Priority: Secondary Status: Acute Qualifiers: Viral hepatitis chronicity: chronic Hepatic coma status: without hepatic coma Qualified Code(s): B18.2 - Chronic viral hepatitis C Hospital course: Ms. Espinoza is a 27 year old female past medical history polysubstance abuse hepatitis a/C questionable endocarditis-presented to [facility] ED and altered state after complaining of chest pain. She was found to be positive for amphetamines and cocaine and marijuana. She was agitated and combative with an nursing staff and for her safety she was sedated. Upon arrival to the floor she was given IV fluids and patient was more alert. She did not complain of any chest pain or troponins were negative 3 chest x-ray. No acute process CT of her head was negative for any acute intracranial abnormalities. This morning she is alert appropriate following simple commands. Patient was requesting methadone however she did not have a prescription I advised patient to bring in a prescription and/or prescription bottle with medications-which would be examined by the pharmacy. Patient's father did bring in a prescription bottle with pills however he would not allow me to look at the bottle advised that we will have pharmacy inspect medication and check prescription, at that point the patient became agitated- nursing staff reports patient leaving AGAINST MEDICAL ADVICE. Patient was advised of the risk of leaving including . Patient verbalized understanding and left AGAINST MEDICAL ADVICE - Time Spent with Patient Total time spent providing and/or coordinating discharge services: - Discharge Medications Prescriptions: No Action Methadone HCl [Diskets] 85 mg PO DAILY Home Medications: Methadone HCl [Diskets] 85 mg PO DAILY 08/03/18 [History] Allergies/Adverse Reactions: Allergy/AdvReac Type Severity Reaction Status Date / Time No Known Allergies Allergy Verified 10/25/17 03:48 Date of admission: 08/03/18 15:39 Primary care physician: PCP NONE - Constitutional Vitals: Temp Pulse Resp BP Pulse Ox 97.6 F 69 16 111/71 99 08/04/18 06:43 08/04/18 06:43 08/04/18 06:43 08/04/18 06:43 08/04/18 06:43 Exam: Skin: Free of rash tract jordan noted to arms and feet Eyes: Sclera is white. There is no discharge from eyes. ENMT: Oral/pharyngeal mucosa is normal in appearance. There is no discharge from nose or ears. Respiratory: Normal breath sounds with no crackles and wheezes bilaterally. CV: Heart is regular with no gallop or murmur. GI: Abdomen is flat and soft with no palpable mass or visceromegaly. : There is no tenderness in patient's flanks bilaterally. Neuro exam: He has good strength in upper and lower extremities. He has normal eye movements. Psychiatric: He has normal affect. His thought process is appropriate to the situation. - Patient Status Disposition: Left Against Medical Advice - Discharge Instructions Follow Up With: NONE,PCP [Primary Care Provider] -
--- NOTE | 2018-08-08 18:12 | Electrocardiograph Report ---
[place] [id number] Test Date: 2018-08-03 Pat Name: Alejandrina Espinoza Department: [id number] Room: 3B13 Gender: F Mate [employer]: : 1990 Requested By: Mason Garcia Order Number: [id number] Reading MD: Gina Patel Measurements Intervals [place] Rate: 96 P: 59 ND: 186 QRS: 46 QRSD: 87 T: 43 QT: 380 QTc: 481 Interpretive Statements Sinus rhythm with sinus arrhythmia Consider left atrial enlargement Borderline ST abnormalities, anterior leads Electronically Signed On 08-08-2018 18:10:22 EDT by Gina Patel
--- NOTE | 2018-08-09 07:47 | Electrocardiograph Report ---
[address] [address] Test Date: 2018-08-04 Pat Name: Alejandrina Espinoza Department: 113 Room: 3B13 Gender: F [employer]: : 1990 Requested By: Emelyn Baez Order Number: [id number] Reading MD: Jose Hilario Measurements Intervals [place] Rate: 62 P: 54 NE: 164 QRS: 55 QRSD: 91 T: 1 QT: 425 QTc: 430 Interpretive Statements SINUS RHYTHM WITH MARKED SINUS ARRHYTHMIA Electronically Signed On 08-09-2018 7:46:24 EDT by Jose Hilario
== END 2018-08-04 09:36 | disposition left against medical advice (07) ==
LOC: 3BNU 08:53 → EMEROOARM 08:53 → 3BNU 16:52
PROVIDERS: ADMIT Internal Medicine; ATTEND Internal Medicine

== ENCOUNTER 2021-05-07 20:13 | Inpatient (IN) ==
[2021-05-07] MEDS ORDERED: Vancomycin (wt based) 1,000 MG VIAL IV STA (23:00)
[2021-05-07] MEDS ORDERED: Isovue-370 500 ML BOTTLE IVP ONE (23:01)
[2021-05-07] MEDS ORDERED: Vancomycin 1,500 MG/265 ML IV.SOLN IVPB ONE (23:09)
[2021-05-08 00:08] LABS: Bilirubin,Urine Negative (Negative); Blood,Urine Large (Negative); Clarity,Urine Turbid (Clear); Color,Urine Amber (Yellow); Glucose,Urine (UA) Normal (Normal); Ketones,Urine Negative (Negative); Protein,Urine >=300 mg/dL (Neg-Trace); Specific Gravity,Urine 1.018 (1.010-1.025); Urobilinogen,Urine Normal (Normal)
[2021-05-08 00:09] LABS: Leukocyte Esterase,Urine Negative (Negative); Nitrite,Urine Negative (Negative)
[2021-05-08 00:10] LABS: Amphetamine Screen,Urine Positive ng/mL (Cutoff=1000); Barbiturate Screen,Urine Negative ng/mL (Cutoff=200); Benzodiazepines Screen,Urine Positive ng/mL (Cutoff=200); Cannabinoid Screen,Urine Negative ng/mL (Cutoff = 50); Cocaine Screen,Urine Positive ng/mL (Cutoff= 300); Opiate Screen,Urine Negative ng/mL (Cutoff=300); Phencyclidine Screen,Urine Negative ng/mL (Cutoff=25)
[2021-05-08 00:27] LABS: Basophils % 0.2 %; Eosinophils # 0.6 K/mcL (0.0-0.6); Eosinophils % 2.8 %; Hematocrit 34.8 % (35.3-44.9); Hemoglobin 11.4 g/dL (11.5-15.4); Lymphocytes # 1.8 K/mcL (0.6-4.6); Lymphocytes % 9.4 %; Mean Corpuscular HGB Conc 32.8 g/dL (31.6-35.5); Mean Corpuscular Hemoglobin 27.1 pg (28.0-33.3); Mean Corpuscular Volume 82.9 fL (83.0-100.0); Mean Platelet Volume 11.4 fL (9.4-12.4); Monocytes # 1.4 K/mcL (0.0-1.3); Neutrophils # 15.2 K/mcL (1.6-8.9); Platelet Count 271 K/mcL (140-400); Red Cell Distribution Width 12.3 % (11.5-14.5); Segmented Neutrophils % 78.6 %; White Blood Count 19.4 K/mcL (4.3-11.1)
[2021-05-08 00:45] LABS: BUN/Creatinine Ratio 10 (6-26); Blood Urea Nitrogen 64 mg/dL (6-20); Calcium 7.9 mg/dL (8.6-10.3); Carbon Dioxide 28 mEq/L (23-29); Chloride 92 mEq/L (98-107); Creatine Kinase 96 Units/L (30-223); Glucose 99 mg/dL (70-105); Osmolality,Calculated 298 (280-300); Potassium 3.1 mEq/L (3.5-5.1); Sodium 135 mEq/L (136-145); eGFR For African Americans 9 (> 60); eGFR For Non-African Americans 8 (> 60)
[2021-05-08] MEDS ORDERED: 0.9 % Sodium Chloride 1,000 ML IVC ONE (01:00)
[2021-05-08] MEDS ORDERED: Ringers Solution, Lactated 1,000 ML IVC ONE (01:02)
[2021-05-08] MEDS ORDERED: Piperacillin/Tazobactam 3.375 GM in 0.9 % Sodium Chloride Mini Bag 100 ML IVPB ONE (01:32)
[2021-05-08] MEDS ORDERED: Ketorolac 30 MG/ML VIAL IVP ONE (02:28)
[2021-05-08 03:00] LABS: Alanine Aminotransferase 12 Units/L (7-52); Albumin 2.7 g/dL (3.5-5.7); Albumin/Globulin Ratio 0.8 (1.1-2.2); Alkaline Phosphatase 142 Units/L (34-104); Aspartate Amino Transferase 14 Units/L (13-39); Bilirubin,Direct 0.1 mg/dL (0.0-0.2); Bilirubin,Indirect 0.1 mg/dL (0.0-1.0); Bilirubin,Total 0.2 mg/dL (0.3-1.0); Ethanol < 10 mg/dL (Less than 10); Globulin 3.5 g/dL (2.4-3.5); Total Protein 6.2 g/dL (6.4-8.9)
[2021-05-08] MEDS ORDERED: Melatonin 3 MG TABLET PO PRN (03:16)
[2021-05-08] MEDS ORDERED: Acetaminophen 325 MG TABLET PO PRN (03:16)
[2021-05-08] MEDS ORDERED: Naloxone 0.4 MG/ML INJ IVP PRN (03:16)
[2021-05-08] MEDS ORDERED: Ondansetron ODT 4 MG TAB.RAPDIS SL PRN (03:16)
[2021-05-08] MEDS ORDERED: Ringers Solution, Lactated 1,000 ML IVC SCH (03:30)
[2021-05-08 04:01] LABS: Influenza A PCR Negative (Negative); Influenza B PCR Negative (Negative); Resp. Syncytial Virus PCR Negative (Negative)
[2021-05-08 04:06] LABS: SARS-CoV-2 by PCR (In House) Negative (Negative)
[2021-05-08] MEDS ORDERED: *HR* LORazepam 2 MG/ML VIAL IVP PRN ×3 (05:02)
[2021-05-08] MEDS ORDERED: Perflutren Lipid Microsphere 1.3 ML in 0.9 % Sodium Chloride 8.7 ML IVP PRN (05:03)
[2021-05-08] MEDS: *HR* HYDROcodone/Acet 5/325 mg TABLET PO PRN ×2 (05:05→11:35)
[2021-05-08] MEDS ORDERED: *HR* Heparin 5,000 UNIT/ML VIAL SQ SCH (06:00)
[2021-05-08] MEDS ORDERED: Cefepime HCl 1,000 MG in 0.9 % Sodium Chloride Mini Bag 100 ML IVPB SCH (06:00)
[2021-05-08 06:12] LABS: Sodium, Urine 40.5 mEq/L
[2021-05-08] MEDS: Cefepime HCl 1,000 MG in 0.9 % Sodium Chloride Mini Bag 100 ML IVPB SCH (06:25)
[2021-05-08] MEDS ORDERED: 0.9 % Sodium Chloride 1,000 ML IVC SCH (07:30)
[2021-05-08] MEDS: Nicotine 14 MG PATCH.TD24 TD SCH (09:21)
[2021-05-08] MEDS ORDERED: Pantoprazole 40 MG VIAL IVP SCH (14:30)
[2021-05-08] MEDS: Ondansetron 4 MG/2 ML VIAL IVP PRN (14:44)
[2021-05-08] MEDS: Ipratropium/Albuterol Neb 3 ML IH SCH ×2 (16:39→21:26)
[2021-05-08] MEDS: Albumin 25% 25gram/100mL 25 GM/100 ML IV.SOLN IVPB SCH (16:54)
[2021-05-08] MEDS: Pantoprazole 40 MG VIAL IVP SCH (16:54)
[2021-05-08 21:11] LABS: Basophils # 0.1 K/mcL (0.0-0.2); Basophils % 0.3 %; Eosinophils # 0.1 K/mcL (0.0-0.6); Eosinophils % 0.4 %; Hematocrit 31.5 % (35.3-44.9); Hemoglobin 10.5 g/dL (11.5-15.4); Immature Granulocytes % 1.5 % (0-4); Lymphocytes # 1.3 K/mcL (0.6-4.6); Lymphocytes % 6.4 %; Mean Corpuscular HGB Conc 33.3 g/dL (31.6-35.5); Mean Corpuscular Hemoglobin 27.2 pg (28.0-33.3); Mean Corpuscular Volume 81.6 fL (83.0-100.0); Mean Platelet Volume 11.5 fL (9.4-12.4); Monocytes # 1.1 K/mcL (0.0-1.3); Monocytes % 5.1 %; Platelet Count 253 K/mcL (140-400); Red Blood Count 3.86 M/mcL (3.82-4.97); Red Cell Distribution Width 12.4 % (11.5-14.5); Segmented Neutrophils % 86.3 %; White Blood Count 20.8 K/mcL (4.3-11.1)
[2021-05-08 21:25] LABS: BUN/Creatinine Ratio 11 (6-26); Blood Urea Nitrogen 66 mg/dL (6-20); Calcium 7.7 mg/dL (8.6-10.3); Carbon Dioxide 23 mEq/L (23-29); Chloride 99 mEq/L (98-107); Creatine Kinase 50 Units/L (30-223); Glucose 144 mg/dL (70-105); Osmolality,Calculated 300 (280-300); Potassium 4.1 mEq/L (3.5-5.1); Sodium 134 mEq/L (136-145); Uric Acid 8.2 mg/dL (2.3-7.6); eGFR For African Americans 10 (> 60); eGFR For Non-African Americans 8 (> 60)
[2021-05-08 22:15] LABS: Iron < 10 mcg/dL (50-170)
[2021-05-08 23:40] LABS: INR 1.1; Prothrombin Time 11.7 Seconds (9.4-12.1)
[2021-05-08 23:45] LABS: Ferritin 84 ng/mL (10-120)
[2021-05-08 23:57] LABS: Complement C3 113 mg/dL (87-200)
[2021-05-09] MEDS: Albumin 25% 25gram/100mL 25 GM/100 ML IV.SOLN IVPB SCH ×3 (00:13→14:48)
[2021-05-09 00:19] LABS: Folate 7.6 ng/mL (3.0-16.0); Vitamin B12 1201 pg/mL (250-1100)
[2021-05-09 00:43] LABS: Transferrin 105 mg/dL (203-362)
[2021-05-09 00:55] LABS: Creatinine,Urine 115 mg/dL; Microalbumin,Urine > 1350 mg/L; Protein/Creatinine Ratio,Urine 3.77 mg/mg (0.00-0.20)
[2021-05-09 01:13] LABS: Eosinophils % 1.5 %; Hemoglobin 9.7 g/dL (11.5-15.4); Red Cell Distribution Width 12.3 % (11.5-14.5)
[2021-05-09 01:15] LABS: Basophils # 0.1 K/mcL (0.0-0.2); Basophils % 0.3 %; Eosinophils # 0.3 K/mcL (0.0-0.6); Hematocrit 30.5 % (35.3-44.9); Immature Granulocytes % 1.2 % (0-4); Immature Platelets 5.2 % (1.1-6.1); Lymphocytes # 1.7 K/mcL (0.6-4.6); Lymphocytes % 9.6 %; Mean Corpuscular HGB Conc 31.8 g/dL (31.6-35.5); Mean Corpuscular Hemoglobin 26.9 pg (28.0-33.3); Mean Corpuscular Volume 84.7 fL (83.0-100.0); Mean Platelet Volume 11.7 fL (9.4-12.4); Monocytes # 1.1 K/mcL (0.0-1.3); Monocytes % 6.2 %; Platelet Count 208 K/mcL (140-400); Segmented Neutrophils % 81.2 %; White Blood Count 17.7 K/mcL (4.3-11.1)
[2021-05-09 01:18] LABS: Neutrophils # 14.4 K/mcL (1.6-8.9)
[2021-05-09 01:32] LABS: Calcium 7.6 mg/dL (8.6-10.3); Potassium 3.6 mEq/L (3.5-5.1)
[2021-05-09] MEDS: *HR* HYDROcodone/Acet 5/325 mg TABLET PO PRN (02:39)
[2021-05-09] MEDS: Ondansetron 4 MG/2 ML VIAL IVP PRN (02:39)
[2021-05-09 03:47] LABS: Hepatitis B Surface Antigen Nonreactive (Nonreactive)
[2021-05-09] MEDS: Ipratropium/Albuterol Neb 3 ML IH SCH ×4 (04:12→19:57)
[2021-05-09 04:17] LABS: Hepatitis A Antibody IgM Nonreactive (Nonreactive); Hepatitis B Core IgM Nonreactive (Nonreactive)
[2021-05-09 07:55] LABS: Hepatitis C Virus Antibody Reactive (Nonreactive)
[2021-05-09] MEDS: Nicotine 14 MG PATCH.TD24 TD SCH (08:23)
[2021-05-09] MEDS ORDERED: *HR* HYDROmorphone PF 0.5 MG/0.5 ML SYRINGE IVP PRN (09:30)
[2021-05-09] MEDS ORDERED: Ondansetron 4 MG/2 ML VIAL IVP PRN (09:30)
[2021-05-09] MEDS: Cefepime HCl 1,000 MG in 0.9 % Sodium Chloride Mini Bag 100 ML IVPB SCH (10:13)
[2021-05-09] MEDS: Pantoprazole 40 MG VIAL IVP SCH ×2 (10:13→16:56)
[2021-05-09] MEDS ORDERED: Ondansetron 4 MG/2 ML VIAL ONE (10:25)
[2021-05-09] MEDS ORDERED: *HR* Rocuronium Bromide 50 MG/5 ML VIAL ONE (10:25)
[2021-05-09] MEDS ORDERED: Lidocaine HCL 4 ML Topical Solution (Laryng-O-Jet Kit Sterile Pak) TP ONE (10:25)
[2021-05-09] MEDS ORDERED: Lidocaine -MPF 2% 5 ML VIAL ONE (10:25)
[2021-05-09] MEDS ORDERED: *HR* Midazolam HCl 2 MG/2 ML VIAL ONE (10:26)
[2021-05-09] MEDS ORDERED: *HR* FentaNYL (PF) 100 MCG/2 ML VIAL ONE ×2 (10:26→12:53)
[2021-05-09] MEDS ORDERED: *HR* Propofol 200 MG/20 ML VIAL IVP ONE (10:26)
[2021-05-09] MEDS ORDERED: Ipratropium/Albuterol Neb 3 ML IH ONE (11:04)
[2021-05-09] MEDS ORDERED: *HR* HYDROMORPHONE 2 MG/ML VIAL ONE (13:01)
[2021-05-09] MEDS: *HR* FentaNYL (PF) 100 MCG/2 ML VIAL IVP PRN ×4 (13:30→13:46)
[2021-05-09] MEDS: Acetaminophen IV 1,000 MG/100 ML BAG IVPB SCH ×2 (15:36→22:28)
[2021-05-09] MEDS ORDERED: DAPTOmycin 500 MG in 0.9 % Sodium Chloride 100 ML IVPB SCH (20:00)
[2021-05-10] MEDS: Albumin 25% 25gram/100mL 25 GM/100 ML IV.SOLN IVPB SCH ×2 (00:08→08:02)
[2021-05-10] MEDS: Acetaminophen IV 1,000 MG/100 ML BAG IVPB SCH ×2 (03:08→08:03)
[2021-05-10] MEDS: Ipratropium/Albuterol Neb 3 ML IH SCH ×2 (03:50→10:19)
[2021-05-10] MEDS: Pantoprazole 40 MG VIAL IVP SCH (05:28)
[2021-05-10] MEDS: Cefepime HCl 1,000 MG in 0.9 % Sodium Chloride Mini Bag 100 ML IVPB SCH (05:29)
[2021-05-10 06:19] LABS: Basophils % 0.2 %; Eosinophils % 0.2 %; Hemoglobin 10.2 g/dL (11.5-15.4); Immature Granulocytes % 4.3 % (0-4); Lymphocytes # 1.5 K/mcL (0.6-4.6); Lymphocytes % 8.8 %; Mean Corpuscular HGB Conc 31.9 g/dL (31.6-35.5); Mean Corpuscular Hemoglobin 26.7 pg (28.0-33.3); Mean Corpuscular Volume 83.8 fL (83.0-100.0); Mean Platelet Volume 11.1 fL (9.4-12.4); Monocytes # 0.7 K/mcL (0.0-1.3); Monocytes % 4.3 %; Neutrophils # 13.9 K/mcL (1.6-8.9); Platelet Count 290 K/mcL (140-400); Red Blood Count 3.82 M/mcL (3.82-4.97); Red Cell Distribution Width 12.7 % (11.5-14.5); Segmented Neutrophils % 82.2 %; White Blood Count 16.9 K/mcL (4.3-11.1)
[2021-05-10 06:37] LABS: Calcium 8.3 mg/dL (8.6-10.3); Potassium 4.9 mEq/L (3.5-5.1)
[2021-05-10] MEDS: Nicotine 14 MG PATCH.TD24 TD SCH (08:02)
[2021-05-10] MEDS ORDERED: *HR* Midazolam HCl 2 MG/2 ML VIAL ONE (09:21)
[2021-05-10] MEDS ORDERED: *HR* FentaNYL (PF) 100 MCG/2 ML VIAL ONE (09:21)
[2021-05-10] MEDS ORDERED: 0.9 % Sodium Chloride 500 ML IVC ONE (09:47)
[2021-05-10] MEDS ORDERED: Lidocaine Viscous Oral Soln 15 ML SOLUTION MM PRN (09:47)
[2021-05-10 11:03] VITALS: BP 125/82; PULSE 80; TEMP 98.4; O2SAT 98
[2021-05-12 07:40] LABS: ANA IgG by ELISA NONE DETECTED (None Detected)
[2021-05-12 07:41] LABS: GBM IgG Multiplex Bead Assay 2 AU/mL (0-19); Glomerular Basement Memb IgG NEGATIVE (Negative)
== END 2021-05-10 12:20 | disposition left against medical advice (07) | DRG 720 ==
LOC: 3ANU 20:13 → EMEROOARM 20:13 → SUATTDRO 05-08 03:47 → 3ANU 05-08 04:07
PROVIDERS: ADMIT Internal Medicine; ATTEND General Practice

== ENCOUNTER 2022-01-08 14:30 | Inpatient (IN) ==
[2022-01-08 16:24] LABS: Amorphous Sediment,Urine Few per hpf (None-Few); Bilirubin,Urine Negative (Negative); Blood,Urine Large (Negative); Clarity,Urine Turbid (Clear); Color,Urine Light-Yellow (Yellow); Glucose,Urine (UA) 200 mg/dL (Normal); Ketones,Urine Negative (Negative); Leukocyte Esterase,Urine Negative (Negative); Mucus,Urine Few per lpf (None-Few); Nitrite,Urine Negative (Negative); PH,Urine 6.5 pH Units (5.0-8.0); Protein,Urine >=600 mg/dL (Neg-Trace); RBC,Urine TNTC per hpf (0-3); Specific Gravity,Urine 1.011 (1.010-1.025); Squamous Epithelial Cell,Urine Few per hpf (None-Few); Urobilinogen,Urine Normal (Normal); WBC,Urine 30-50 per hpf (0-3)
[2022-01-08 16:29] LABS: Amphetamine Screen,Urine Negative ng/mL (Cutoff=1000); Barbiturate Screen,Urine Negative ng/mL (Cutoff=200); Benzodiazepines Screen,Urine Negative ng/mL (Cutoff=200); Cannabinoid Screen,Urine Negative ng/mL (Cutoff = 50); Cocaine Screen,Urine Positive ng/mL (Cutoff= 300); Opiate Screen,Urine Negative ng/mL (Cutoff=300); Phencyclidine Screen,Urine Negative ng/mL (Cutoff=25)
[2022-01-08 19:21] LABS: Prothrombin Time 11.5 Seconds (9.4-12.1)
[2022-01-08 19:25] LABS: Basophils % 0.2 %; Eosinophils % 0.6 %; Hematocrit 18.6 % (35.3-44.9); Hemoglobin 6.1 g/dL (11.5-15.4); Immature Granulocytes % 0.6 % (0-4); Lymphocytes # 0.9 K/mcL (0.6-4.6); Lymphocytes % 13.6 %; Mean Corpuscular HGB Conc 32.8 g/dL (31.6-35.5); Mean Corpuscular Hemoglobin 26.5 pg (28.0-33.3); Mean Corpuscular Volume 80.9 fL (83.0-100.0); Mean Platelet Volume 11.8 fL (9.4-12.4); Monocytes # 0.4 K/mcL (0.0-1.3); Monocytes % 5.5 %; Neutrophils # 5.2 K/mcL (1.6-8.9); Platelet Count 100 K/mcL (140-400); Red Cell Distribution Width 14.8 % (11.5-14.5); Segmented Neutrophils % 79.5 %; White Blood Count 6.6 K/mcL (4.3-11.1)
[2022-01-08 19:26] LABS: Alanine Aminotransferase 11 Units/L (7-52); Albumin/Globulin Ratio 0.9 (1.1-2.2); Alkaline Phosphatase 48 Units/L (34-104); Aspartate Amino Transferase 10 Units/L (13-39); BUN/Creatinine Ratio 10 (6-26); Bilirubin,Total 0.2 mg/dL (0.3-1.0); Blood Urea Nitrogen 122 mg/dL (6-20); Calcium 7.4 mg/dL (8.6-10.3); Carbon Dioxide 14 mEq/L (23-29); Chloride 100 mEq/L (98-107); Ethanol < 10 mg/dL (Less than 10); Globulin 3.2 g/dL (2.4-3.5); Glucose 92 mg/dL (70-105); Osmolality,Calculated 311 (280-300); Potassium 4.2 mEq/L (3.5-5.1); Sodium 131 mEq/L (136-145); Total Protein 6.2 g/dL (6.4-8.9); Troponin I 0.03 ng/mL (< 0.04)
[2022-01-08] MEDS ORDERED: Iopamidol - 370 500 ML MLS IVP ONE (19:39)
[2022-01-08] MEDS ORDERED: 0.9 % Sodium Chloride 1,000 ML IV ONE ×2 (19:40→22:04)
[2022-01-08] MEDS ORDERED: cefTRIAXone 1,000 MG in 0.9 % Sodium Chloride Mini Bag 100 ML IVPB ONE (20:11)
[2022-01-08 21:25] LABS: Activated Partial Thrombo Time 28.9 Seconds (26.0-36.0)
[2022-01-08 23:15] LABS: Influenza A PCR Negative (Negative); Influenza B PCR Negative (Negative); Resp. Syncytial Virus PCR Negative (Negative)
[2022-01-08 23:20] LABS: SARS-CoV-2 by PCR (In House) Positive (Negative)
[2022-01-09] MEDS ORDERED: Melatonin 3 MG TABLET PO PRN (00:26)
[2022-01-09] MEDS ORDERED: Naloxone 0.4 MG/ML INJ IVP PRN (00:26)
[2022-01-09] MEDS ORDERED: Ondansetron 4 MG/2 ML VIAL IVP PRN (01:01)
[2022-01-09 01:29] LABS: Magnesium 2.2 mg/dL (1.6-2.6); Phosphorous 9.3 mg/dL (2.7-4.5)
[2022-01-09 01:29] LABS: Rheumatoid Factor < 10 IU/mL (Less than 14)
[2022-01-09] MEDS: niCARdipine 20 MG/200 ML MLS IVC SCH ×4 (02:05→13:42)
[2022-01-09] MEDS: *HR* LORazepam 2 MG/ML VIAL IVP PRN ×2 (02:18→22:40)
[2022-01-09 02:32] LABS: HIV-1&2 Antibody & p24 Ag Nonreactive (Nonreactive)
[2022-01-09] MEDS: Pantoprazole 40 MG VIAL IVP SCH ×2 (02:34→16:38)
[2022-01-09] MEDS ORDERED: Piperacillin/Tazobactam 3.375 GM in 0.9 % Sodium Chloride Mini Bag 100 ML IVPB SCH (06:00)
[2022-01-09 09:31] LABS: Basophils % 0.1 %; Eosinophils # 0.1 K/mcL (0.0-0.6); Eosinophils % 0.7 %; Hematocrit 22.4 % (35.3-44.9); Immature Granulocytes % 0.4 % (0-4); Lymphocytes % 12.6 %; Mean Corpuscular HGB Conc 33.5 g/dL (31.6-35.5); Mean Corpuscular Hemoglobin 27.1 pg (28.0-33.3); Mean Corpuscular Volume 80.9 fL (83.0-100.0); Monocytes # 0.6 K/mcL (0.0-1.3); Monocytes % 7.5 %; Neutrophils # 6.4 K/mcL (1.6-8.9); Platelet Count 114 K/mcL (140-400); Red Blood Count 2.77 M/mcL (3.82-4.97); Red Cell Distribution Width 14.2 % (11.5-14.5); Segmented Neutrophils % 78.7 %; White Blood Count 8.2 K/mcL (4.3-11.1)
[2022-01-09 09:32] LABS: Hemoglobin 7.5 g/dL (11.5-15.4)
[2022-01-09 09:44] LABS: D-Dimer 2021 ng/mLFEU (0-500)
[2022-01-09 09:51] LABS: % Iron Saturation 12 % (15-50); Albumin 2.8 g/dL (3.5-5.7); Albumin/Globulin Ratio 0.8 (1.1-2.2); Bilirubin,Total 0.3 mg/dL (0.3-1.0); Calcium 7.4 mg/dL (8.6-10.3); Globulin 3.4 g/dL (2.4-3.5); Iron 27 mcg/dL (50-170); Potassium 3.9 mEq/L (3.5-5.1); Total Protein 6.2 g/dL (6.4-8.9); Transferrin 157 mg/dL (203-362)
[2022-01-09 09:52] LABS: Calcium 7.5 mg/dL (8.6-10.3); Potassium 3.8 mEq/L (3.5-5.1)
[2022-01-09 10:10] LABS: Ferritin 148 ng/mL (10-120)
[2022-01-09 10:29] LABS: Fibrinogen 502 mg/dL (169-393)
[2022-01-09 13:11] LABS: A.calcoaceticus-baumannii cplx Not Detected (Not Detect); Bacteroides fragilis by PCR Not Detected (Not Detect); Candida albicans by PCR Not Detected (Not Detect); Candida auris by PCR Not Detected (Not Detect); Candida glabrata by PCR Not Detected (Not Detect); Candida krusei by PCR Not Detected (Not Detect); Candida parapsilosis by PCR Not Detected (Not Detect); Candida tropicalis by PCR Not Detected (Not Detect); Crypto. neoformans/gattii PCR Not Detected (Not Detect); Enterobacter cloacae Cmplx PCR Not Detected (Not Detect); Enterobacterales by PCR Not Detected (Not Detect); Enterococcus faecalis by PCR Not Detected (Not Detect); Enterococcus faecium by PCR Not Detected (Not Detect); Escherichia coli by PCR Not Detected (Not Detect); Klebs. pneumoniae group by PCR Not Detected (Not Detect); Klebsiella aerogenes by PCR Not Detected (Not Detect); Klebsiella oxytoca by PCR Not Detected (Not Detect); Proteus by PCR Not Detected (Not Detect); Pseudomonas aeruginosa by PCR Not Detected (Not Detect); Salmonella species by PCR Not Detected (Not Detect); Serratia marcescens by PCR Not Detected (Not Detect); Staph epidermidis by PCR Not Detected (Not Detect); Staph lugdunensis by PCR Not Detected (Not Detect); Staphylococcus aureus by PCR Not Detected (Not Detect); Staphylococcus by PCR Not Detected (Not Detect); Stenotrophomonas maltophilia Not Detected (Not Detect); Streptococcus agalactiae(B)PCR Not Detected (Not Detect); Streptococcus pneumoniae PCR Not Detected (Not Detect); Streptococcus pyogenes (A) PCR DETECTED (Not Detect)
[2022-01-09] MEDS: Calcium Acetate 667 MG CAPSULE PO SCH (16:38)
[2022-01-09] MEDS: Clindamycin 600 MG/50 ML 600 MG/50 ML IV.SOLN IVPB SCH ×2 (16:38→23:56)
[2022-01-09] MEDS ORDERED: cefTRIAXone 2,000 MG in 0.9 % Sodium Chloride Mini Bag 100 ML IVPB SCH (17:00)
[2022-01-09] MEDS: cefTRIAXone 2,000 MG in 0.9 % Sodium Chloride Mini Bag 100 ML IVPB SCH (19:54)
[2022-01-09] MEDS: Lactobacillus 1 EACH CAP.SPRINK PO SCH (20:37)
[2022-01-10 03:37] LABS: Basophils % 0.2 %; Eosinophils % 0.3 %; Hematocrit 22.2 % (35.3-44.9); Hematocrit 22.4 % (35.3-44.9); Hemoglobin 7.3 g/dL (11.5-15.4); Hemoglobin 7.4 g/dL (11.5-15.4); Immature Granulocytes % 0.3 % (0-4); Lymphocytes # 1.1 K/mcL (0.6-4.6); Lymphocytes % 17.3 %; Mean Corpuscular HGB Conc 32.9 g/dL (31.6-35.5); Mean Corpuscular Hemoglobin 26.5 pg (28.0-33.3); Mean Corpuscular Volume 80.7 fL (83.0-100.0); Mean Platelet Volume 11.5 fL (9.4-12.4); Monocytes # 0.3 K/mcL (0.0-1.3); Monocytes % 5.3 %; Neutrophils # 4.8 K/mcL (1.6-8.9); Platelet Count 128 K/mcL (140-400); Red Blood Count 2.75 M/mcL (3.82-4.97); Red Cell Distribution Width 14.6 % (11.5-14.5); Segmented Neutrophils % 76.6 %; White Blood Count 6.2 K/mcL (4.3-11.1)
[2022-01-10 04:04] LABS: Calcium 7.5 mg/dL (8.6-10.3); Magnesium 2.2 mg/dL (1.6-2.6); Potassium 3.7 mEq/L (3.5-5.1)
[2022-01-10] MEDS: cefTRIAXone 2,000 MG in 0.9 % Sodium Chloride Mini Bag 100 ML IVPB SCH (04:27)
[2022-01-10] MEDS: Pantoprazole 40 MG VIAL IVP SCH (05:02)
[2022-01-10 08:15] VITALS: BP 175/126; TEMP 98.9
[2022-01-10] MEDS ORDERED: Ergocalciferol (VIT D2) 50,000 UNIT (1.25MG) CAP PO SCH (08:30)
[2022-01-10] MEDS: Clindamycin 600 MG/50 ML 600 MG/50 ML IV.SOLN IVPB SCH (09:14)
[2022-01-10] MEDS: Lactobacillus 1 EACH CAP.SPRINK PO SCH (09:21)
[2022-01-10] MEDS: Calcium Acetate 667 MG CAPSULE PO SCH ×2 (09:21→12:46)
[2022-01-10 12:46] VITALS: O2SAT 98
[2022-01-10 14:47] VITALS: PULSE 77
== END 2022-01-10 17:00 | disposition left against medical advice (07) | DRG 720 ==
LOC: EMEROOARM 14:30 → 2NNU 14:30 → SUATTDRO 23:00 → 2NNU 01-09 00:10
PROVIDERS: ADMIT Internal Medicine; ATTEND Internal Medicine

== ENCOUNTER 2022-01-31 21:03 | Inpatient (IN) ==
[2022-02-01 01:29] LABS: Basophils % 0.3 %; Eosinophils # 0.1 K/mcL (0.0-0.6); Eosinophils % 1.9 %; Hematocrit 22.5 % (35.3-44.9); Hemoglobin 7.1 g/dL (11.5-15.4); Immature Granulocytes % 0.4 % (0-4); Lymphocytes % 26.5 %; Mean Corpuscular HGB Conc 31.6 g/dL (31.6-35.5); Mean Corpuscular Hemoglobin 27.5 pg (28.0-33.3); Mean Platelet Volume 12.5 fL (9.4-12.4); Monocytes # 0.5 K/mcL (0.0-1.3); Monocytes % 6.1 %; Neutrophils # 4.8 K/mcL (1.6-8.9); Platelet Count 204 K/mcL (140-400); Red Blood Count 2.58 M/mcL (3.82-4.97); Red Cell Distribution Width 15.3 % (11.5-14.5); Segmented Neutrophils % 64.8 %; White Blood Count 7.4 K/mcL (4.3-11.1)
[2022-02-01 01:31] LABS: Mean Corpuscular Volume 87.2 fL (83.0-100.0)
[2022-02-01 01:57] LABS: Albumin 3.2 g/dL (3.5-5.7); Albumin/Globulin Ratio 0.8 (1.1-2.2); Bilirubin,Total 0.2 mg/dL (0.3-1.0); Calcium 6.7 mg/dL (8.6-10.3); Globulin 3.9 g/dL (2.4-3.5); Potassium 4.8 mEq/L (3.5-5.1); Total Protein 7.1 g/dL (6.4-8.9); Troponin I 0.06 ng/mL (< 0.04)
[2022-02-01] MEDS ORDERED: Clindamycin 600 MG/50 ML 600 MG/50 ML IV.SOLN IVPB ONE (02:39)
[2022-02-01] MEDS ORDERED: cefTRIAXone 1,000 MG in Water for inj. (sterile) 10 ML IVP ONE (02:39)
[2022-02-01 03:08] LABS: VBG HCO3 18 mEq/L (21-27); VBG PCO2 51 mmHg (41-51); VBG PH 7.15 pH Units (7.32-7.42); VBG PO2 67 mmHg (25-50)
[2022-02-01] MEDS ORDERED: Naloxone 0.4 MG/ML INJ IVP PRN (03:20)
[2022-02-01] MEDS ORDERED: Acetaminophen 325 MG TABLET PO PRN (03:20)
[2022-02-01] MEDS ORDERED: Ondansetron 4 MG/2 ML VIAL IVP PRN (03:20)
[2022-02-01] MEDS ORDERED: Sodium Bicarbonate 150 MEQ in D5% in Water 1,000 ML IVC SCH ×2 (04:15→17:49)
[2022-02-01 04:58] LABS: Bacteria,Urine Few per hpf (None-Few); Bilirubin,Urine Negative (Negative); Blood,Urine Moderate (Negative); Clarity,Urine Clear (Clear); Color,Urine Colorless (Yellow); Glucose,Urine (UA) 200 mg/dL (Normal); Ketones,Urine Negative (Negative); Leukocyte Esterase,Urine Negative (Negative); Mucus,Urine Few per lpf (None-Few); Nitrite,Urine Negative (Negative); Protein,Urine >=600 mg/dL (Neg-Trace); RBC,Urine 15-30 per hpf (0-3); Specific Gravity,Urine 1.012 (1.010-1.025); Squamous Epithelial Cell,Urine Few per hpf (None-Few); Urobilinogen,Urine Normal (Normal)
[2022-02-01 05:01] LABS: Amphetamine Screen,Urine Negative ng/mL (Cutoff=1000)
[2022-02-01 05:02] LABS: Barbiturate Screen,Urine Negative ng/mL (Cutoff=200); Benzodiazepines Screen,Urine Negative ng/mL (Cutoff=200); Cannabinoid Screen,Urine Negative ng/mL (Cutoff = 50); Cocaine Screen,Urine Positive ng/mL (Cutoff= 300); Opiate Screen,Urine Negative ng/mL (Cutoff=300); Phencyclidine Screen,Urine Negative ng/mL (Cutoff=25)
[2022-02-01] MEDS ORDERED: cefTRIAXone 2,000 MG in 0.9 % Sodium Chloride Mini Bag 100 ML IVPB SCH ×2 (06:00→17:00)
[2022-02-01] MEDS ORDERED: *HR* Dextrose 50 % in Water (Syg) 50 ML SYRINGE IVP PRN (06:54)
[2022-02-01] MEDS ORDERED: Dextrose Gel 15 GM/37.5 ML TUBE PO PRN ×2 (06:54)
[2022-02-01] MEDS ORDERED: D5% in Water 1,000 ML IVC PRN (06:54)
[2022-02-01] MEDS ORDERED: Furosemide 40 MG/4 ML VIAL IVP ONE ×2 (07:02→14:54)
[2022-02-01 09:53] LABS: Basophils % 0.4 %; Eosinophils # 0.3 K/mcL (0.0-0.6); Eosinophils % 4.1 %; Hematocrit 20.2 % (35.3-44.9); Hemoglobin 6.3 g/dL (11.5-15.4); Immature Granulocytes % 0.3 % (0-4); Lymphocytes # 1.7 K/mcL (0.6-4.6); Lymphocytes % 25.4 %; Mean Corpuscular HGB Conc 31.2 g/dL (31.6-35.5); Mean Corpuscular Volume 86.7 fL (83.0-100.0); Mean Platelet Volume 12.1 fL (9.4-12.4); Monocytes # 0.4 K/mcL (0.0-1.3); Monocytes % 6.4 %; Neutrophils # 4.4 K/mcL (1.6-8.9); Platelet Count 192 K/mcL (140-400); Red Blood Count 2.33 M/mcL (3.82-4.97); Red Cell Distribution Width 15.5 % (11.5-14.5); Segmented Neutrophils % 63.4 %; White Blood Count 6.9 K/mcL (4.3-11.1)
[2022-02-01 10:00] LABS: INR 1.2; Prothrombin Time 13.2 Seconds (9.4-12.1)
[2022-02-01 10:26] LABS: Acetaminophen < 10 mcg/mL (10-20); BUN/Creatinine Ratio 10 (6-26); Blood Urea Nitrogen 134 mg/dL (6-20); Calcium 6.4 mg/dL (8.6-10.3); Carbon Dioxide 20 mEq/L (23-29); Chloride 102 mEq/L (98-107); Ethanol < 10 mg/dL (Less than 10); Glucose 104 mg/dL (70-105); Magnesium 2.5 mg/dL (1.6-2.6); Osmolality,Calculated 326 (280-300); Phosphorous 15.4 mg/dL (2.7-4.5); Potassium 5.4 mEq/L (3.5-5.1); Salicylate < 2.5 mg/dL (15.0-30.0); Sodium 136 mEq/L (136-145)
[2022-02-01] MEDS: Clindamycin 600 MG/50 ML 600 MG/50 ML IV.SOLN IVPB SCH ×2 (10:26→18:18)
[2022-02-01 11:41] LABS: Creatine Kinase 277 Units/L (30-223)
[2022-02-01] MEDS ORDERED: SODIUM ZIRCONIUM CYCLOSILICATE 5 GM POWD.PACK PO ONE (11:43)
[2022-02-01] MEDS ORDERED: 0.9 % Sodium Chloride 250 ML IVC SCH (13:45)
[2022-02-01] MEDS ORDERED: Furosemide 20 MG/2 ML VIAL IVP PRN (13:45)
[2022-02-01] MEDS: Lactobacillus 1 EACH CAP.SPRINK PO SCH ×3 (14:20→20:21)
[2022-02-01] MEDS ORDERED: *HR* LORazepam 2 MG/ML VIAL IVP ONE (14:45)
[2022-02-01] MEDS ORDERED: Aspirin 325 MG TABLET PO ONE (14:54)
[2022-02-01 15:40] LABS: Sodium, Urine 41.1 mEq/L
[2022-02-01] MEDS ORDERED: DAPTOmycin 450 MG in 0.9 % Sodium Chloride 100 ML IVPB ONE (16:00)
[2022-02-01 16:52] LABS: Mixed Venous Blood pCO2 32 mmHg (44-46); Mixed Venous Blood pH 7.31 pH Units (7.34-7.36); Mixed Venous Blood pO2 60 mmHg (35-45)
[2022-02-01] MEDS ORDERED: Furosemide 80 MG in 0.9 % Sodium Chloride 50 ML IVPB ONE (17:12)
[2022-02-01] MEDS ORDERED: niCARdipine 20 MG/200 ML MLS IVC SCH (17:15)
[2022-02-01] MEDS: Morphine Sulfate 2 MG/ML SYRINGE IVP PRN (21:29)
[2022-02-01] MEDS ORDERED: 0.9 % Sodium Chloride 250 ML ONE (21:43)
[2022-02-01] MEDS: *HR* FentaNYL (PF) 100 MCG/2 ML VIAL IVP PRN ×2 (22:10→23:10)
[2022-02-02] MEDS: Morphine Sulfate 2 MG/ML SYRINGE IVP PRN (00:49)
[2022-02-02 01:31] VITALS: PULSE 99
[2022-02-02] MEDS: *HR* FentaNYL (PF) 100 MCG/2 ML VIAL IVP PRN (01:33)
[2022-02-02 01:35] VITALS: BP 154/117; TEMP 97.8; O2SAT 97
== END 2022-02-02 02:51 | disposition short-term general hospital (02) | DRG 720 ==
LOC: EMEROOARM 21:03 → 2NNU 02-01 11:42 → ICNU 02-01 20:35
PROVIDERS: ADMIT Internal Medicine; ATTEND Internal Medicine